=== PATIENT | female | born 1955 | race Caucasian/White ===

== ENCOUNTER → 2018-05-12 11:40 | Outpatient (CLI) | payer MEDICARE, OTHER, SELFPAY ==
[2018-05-12 11:53] LABS: Bacteria Urine None Seen; RBC Urine None Seen (0-5/HPF)
[2018-05-12 12:44] LABS: Hematocrit 38.3 % (36-46); Hemoglobin 12.9 g/dL (12.0-16.0); Mean Corpuscular HGB Conc 33.7 % (30-36); Mean Corpuscular Hemoglobin 32.9 PG (26-34); Mean Corpuscular Volume 97.6 fL (80-100); Platelet Count 222 X10^3/uL (150-400); Red Blood Cell Count 3.93 X10^6/uL (4.0-5.2); Red Cell Distribution Width 12.9 % (11.6-14.8); White Blood Cell Count 4.4 X10^3/uL (4.5-11.0)
[2018-05-12 13:02] LABS: Blood Urea Nitrogen 12 mg/dL (7-17); Calcium 9.5 mg/dL (8.4-10.2); Carbon Dioxide 27 mmol/L (22-32); Chloride 101 mmol/L (98-107); Estimated Glomerular Filt Rate > 60.0 mL/min (>60); Glucose 88 mg/dL (80-110); HEMOLYSIS < 15 (0-50); Potassium 3.5 mmol/L (3.4-5.1); Sodium 143 mmol/L (137-145)
[2018-05-12 13:12] LABS: Appearance Urine UA CLEAR; Bilirubin Urine UA NEGATIVE (NEGATIVE); Color Urine UA YELLOW; Glucose Urine UA NEGATIVE (Normal); Ketones Urine UA NEGATIVE (NEGATIVE); Leukocyte Esterase Urine UA NEGATIVE (NEGATIVE); Nitrite Urine UA NEGATIVE (Negative); Occult Blood Urine UA NEGATIVE (Negative); Protein Urine UA NEGATIVE (Negative); Urobilinogen Urine UA 0.2 E.U./dL (0.2)
[2018-05-12 13:25] LABS: Squamous Epithelial Cell Urine 0-1 /HPF; WBC Urine 0-1/HPF (0-5/HPF)
== END ==
PROVIDERS: Visit Provider Orthopaedic Surgery Orthopaedic Surgery of the Spine
DX: N39.0 Urinary tract infection, site not specified (principal); Z01.818 Encounter for other preprocedural examination
CPT/HCPCS: 36415; 80048; 81001; 85027; 87086

== ENCOUNTER 2018-05-16 06:39 | Inpatient (IN) | payer MEDICARE, OTHER, SELFPAY ==
[2018-05-12 10:27] VITALS: BMI 23.6
[2018-05-16] VITALS (20 sets, daily range): BP systolic 91–135; BP diastolic 63–88; PULSE 58–93; RESP 7–21; TEMP 35.9–36.8; O2SAT 88–100; BMI 23.6
--- NOTE | 2018-05-16 | DI.RAD.S_ITS ---
PROCEDURE: XR LUMBAR SPINE 2-3V INDICATIONS: L4-5, L5-1 TLIF TECHNIQUE: 2 intraoperative fluoroscopic views of the lumbar spine were acquired. COMPARISON: None. FINDINGS: Intraoperative fluoroscopic images of lumbar spine shows transpedicular fusion at L4-S1 levels with intervertebral spacer placement at L4-5 and L5-S1 levels. IMPRESSION: Fluoroscopy guidance was provided intraoperatively for transpedicular fusion at L4-S1 levels. Dictated by: Dat Benavidez M.D. on 05/16/2018 at 12:21 Approved by: Dat Benavidez M.D. on 05/16/2018 at 12:21
[2018-05-16] MEDS: LACTATED RINGERS 1,000 ML 42 ML IV ×3 (07:40→11:11)
--- NOTE | 2018-05-16 08:00 | PM.PREOP ---
Pre-operative Note Interval Note Pre-op Check: Yes History & Physical Reviewed by Physician, Yes Exam Performed and Yes History & Physical exam performed today by Physician Changes: No
[2018-05-16] MEDS: CEFAZOLIN 2 GM/100 ML FROZ.PIGGY IV ×3 (08:05→23:47)
--- NOTE | 2018-05-16 08:41 | SUR.OPER ---
Prone on spine table, head in foam head support, padded chest and pelvic supports, gel pad at knees, lower legs supported by pillows; nipples, genitalia and toes free of pressure, arms secured on foam padded arm boards at <90 degrees abduction. Tape over blanket at thigh secured to table.
[2018-05-16] MEDS: BUPIVACAINE LIPOSOME 266 MG/20 ML VIAL INJ (08:56)
[2018-05-16] MEDS: BUPIVACAINE 0.25% W/ EPI VIAL 30 ML INJ (08:56)
[2018-05-16] MEDS: ACETAMINOPHEN IV 1,000 MG/100 ML VIAL 400 MG IV (10:43)
--- NOTE | 2018-05-16 11:41 | PM.OP.1 ---
Operative Date/Time/Diagnoses Date of procedure: 05/16/18 Time of procedure: 08:23 Pre-op diagnosis: 1. L4-5 spondylolisthesis 2. Lumbar scoliosis 3. Lumbar spinal stenosis L4-5, L5-S1+ Post-op diagnosis: same Procedure & Clinicians Procedure: 1. L4-5, L5-S1 Postero-lateral and posterior interbody fusion 2. L4-5, L5-S1 interbody cage placement. 3. L4-5, L5-S1 decompressive laminectomy with bilateral facetecomies 4. L4-5, L5-S1 Posterior segmental instrumentation 5. [place] of bone marrow from iliac crest 6. Utilization of microsurgical technique and operating microscope Same procedure as scheduled: Yes Indications: Patient has been having chronic back pain and worsening lumbar radiculopathy. Patient failed multiple conservative management with worsening pain weakness and numbness in her lower extremity. Patient has been having difficulty performing activity of daily living. After discussing risks benefits of treatment options, patient elected proceed with surgery. Surgeon: Jazmin Molina Fiberglass Insulation Installer: Kori Quiñonez Click Yes if Unassisted: No Anesthesia Type: General Operative Notes Closure Type: primary Specimen(s): none sent Implants & Drains: Globus revolve screws, Rise cages Applied: catheter Estimated Blood Loss (mL): 400 Blood products transfused: none Procedure in detail: Patient was seen in the preoperative area. Risks and benefits of the surgery was discussed with the patient. Informed consent was obtained from the patient and placed in the chart. Surgical site was marked. Patient was taken to the operative room. General anesthesia was administered. Prophylactic antibiotic was given to the patient less than 30 min before the incision was made. Patient was placed into a prone position on the Bert table. Patient's back was then prepped and draped in the sterile fashion. Time-out was performed at this time. Using AP and lateral C-arm imaging the interval between L4-S1 was identified and marked on patient's back. A 2 inch incision 2 in from midline was made on the left side first. The fascia was incised in line with skin incision. Globus MARS retractors was placed inside the incision and docked onto the L4 and L5 lamina. Using microsurgical technique and operating microscope, a L4 and L5 laminectomy and L4-5 L5-S1 facetectomy was performed using a Kerrison rongeur. The disc space at L4-5, L5-S1 was identified. And a total diskectomy was performed at L4-5, L5-S1 level. The endplates were decorticated using a rasp and shaver. The total diskectomy and decortication was performed at L4-5, L5-S1 level in order to to accomplish a L4-5, L5-S1 fusion. The local bone from the laminectomy and facetectomy was saved for local bone grafting. After the total diskectomy and decortication was completed, Globus viacell bone graft material was combined with local bone that was harvested earlier. At this time, a separate skin is incision was made over the iliac crest. A Jamshidi needle was inserted into the iliac crest through a separate skin incision. 5 cc of bone marrow aspiration was obtained through the separate skin incision using a Jamshidi needle from the iliac crest. The bone marrow aspiration was combined with local bone and the via cell bone grafting material. The bone grafting material was placed into the L4-5, L5-S1 interbody space along with two cages, one expandable cage at each level. The cages were expanded to their maximum height using the torque limiting screwdriver. At this time a mirror image incision was made on the right side. The fascia was incised in line with the skin incision. Globus MARS retractor was inserted and docked onto the L4-5, L5-S1 posterolateral gutter. Using the power drill, posterior-lateral decortication was performed at L4-5, L5-S1 level until bleeding cortical bone was identified. The remaining bone grafting material was placed into the L4-5 L5-S1 posterior lateral gutter he order to accomplish posterolateral fusion at the L4-5 L5-S1 levels. Using the double C-arm technique, pedicle screws were placed into the L4, L5, S1 pedicles bilaterally. This was done by placing the Jamshidi needle into the pedicles, then placing the guidewires over the Jamshidi needle, and finally placing the cannulated screws over the guidewires bilaterally. After the pedicle screws were placed, 2 titanium rods was locked into the heads of the pedicle screws using locking caps and torque limiting screwdriver. Total 6 pedicles screws were placed. After all the hardware was placed, and confirmed with AP and lateral C-arm imaging, the wound was then irrigated with sterile normal saline and packed with Ray-Augusto gauze for 3 min to accomplish hemostasis. After the gauze was removed the deep fascia was closed with #1 Vicryl suture. The subcutaneous layer was closed with 2-0 Vicryl. The skin was closed with skin carley. Patient tolerated the procedure well. There were no complications. Complications: none Condition: stable Disposition: PACU Plan for aftercare: Admit to inpatient hospital
--- NOTE | 2018-05-16 12:09 | SUR.PHASEI ---
Tr to 1+ pitting edema to ble
--- NOTE | 2018-05-16 12:10 | SUR.PHASEI ---
Report given to
--- NOTE | 2018-05-16 12:12 | SUR.PHASEI ---
reprot recieved. care assumed.
--- NOTE | 2018-05-16 12:23 | SUR.PHASEI ---
care transferred to Yemi KITCHEN report given.
[2018-05-16] MEDS: fentaNYL 100 MCG/2 ML INJ 50 MCG IV ×2 (12:45→12:51)
[2018-05-16] MEDS: SODIUM CHLORIDE 0.9% 1,000 ML 100 ML IV ×2 (13:34→23:47)
[2018-05-16] MEDS: OXYCODONE IR 5 MG TABLET 10 MG PO ×3 (14:03→18:43)
--- NOTE | 2018-05-16 15:37 | PT.IPTN ---
Current Diagnoses Other idiopathic scoliosis, thoracolumbar region (05/16/18) Spondylolisthesis, lumbar region (05/16/18) Spinal stenosis, lumbar region with neurogenic claudication (05/16/18) Surgery Performed Operation Date: 05/16/18 07:45 Actual Procedures p L4-5,L5-S1 TLIF w/Posterior Instru. - Jazmin Molina MD Physical Therapy Treatment Note M3 PT-IP Subjective Start: 05/16/18 15:36 Freq: NEEDED Status: Active Protocol: Document 05/16/18 15:00 RS (Rec: 05/16/18 15:37 RS [id number]) Subjective Physical Therapy Visit Type Type Administrative Note Notes Pt with 8/10 pain, not yet ready to participate in PT.
[2018-05-16] MEDS: BACLOFEN 10 MG TABLET PO ×2 (16:44→21:07)
[2018-05-16] MEDS: ACETAMINOPHEN 325 MG TABLET 650 MG PO (18:42)
[2018-05-16] MEDS: hydrOXYzine pamoate 25 MG CAPSULE PO (18:43)
[2018-05-16] MEDS: DOCUSATE 100 MG CAPSULE PO (21:07)
[2018-05-16] MEDS: SENNOSIDES 8.6 MG TABLET 17.2 MG PO (21:07)
[2018-05-17] VITALS (7 sets, daily range): BP systolic 95–116; BP diastolic 64–75; PULSE 75–90; RESP 16–18; TEMP 36.6–37.1; O2SAT 91–99
--- NOTE | 2018-05-17 00:19 | PC.NURSE ---
Addendum entered by Michelle Molina R.N. 05/17/18 05:57: Medicated for 4/10 back pain but declined offer of ice Original Note: Addendum entered by Michelle Molina R.N. 05/17/18 02:01: Complains of throbbing pain in back with 6/10 severity; medicated with Oxycodone + Vistaril (also says the spasms are back) and ice applied to back. Original Note: Patient is alert and oriented. Breath sounds CTA with RA sat of 96%. HRR. Denies nausea. BT present and is passing flatus. Indwelling catheter is patent. Able to assist with turning but prefers to be on back so Tameka tilt function being used to change position q2h. Dressing to back is CDI. Denies any pain at present time. CMS is intact. Refuses SCD's as states they cause her to have spasms. Fall risk score is moderate and bed alarm is activated.
[2018-05-17] MEDS: hydrOXYzine pamoate 25 MG CAPSULE PO ×2 (02:00→12:28)
[2018-05-17] MEDS: OXYCODONE IR 5 MG TABLET 10 MG PO ×7 (02:00→23:36)
[2018-05-17] MEDS: LEVOTHYROXINE 100 MCG TABLET 200 MCG PO (05:31)
[2018-05-17 05:35] LABS: Hematocrit 28.4 % (36-46); Hemoglobin 9.6 g/dL (12.0-16.0)
[2018-05-17] MEDS: ACETAMINOPHEN 325 MG TABLET 650 MG PO ×4 (08:11→23:26)
[2018-05-17] MEDS: DOCUSATE 100 MG CAPSULE PO ×2 (08:12→20:32)
[2018-05-17] MEDS: FUROSEMIDE 40 MG TABLET 80 MG PO (08:12)
[2018-05-17] MEDS: BACLOFEN 10 MG TABLET PO ×3 (08:12→20:32)
[2018-05-17] MEDS: POTASSIUM CHLORIDE 10 MEQ TAB 20 MEQ PO (08:12)
--- NOTE | 2018-05-17 08:43 | CM.DANOTE ---
DCP: Case received, EMR reviewed and met with patient. Introduced self and role. DCP template completed with information currently available. Patient is a 63 year old female who admitted yesterday morning to the care of the hospitalist team. PCP: Dr. Coulter. Payer: confirmed:Medicare/[employer]. Patient came to hospital for procedure, Posterior fusion of L4-5, L5-S1. Patient has had chronic history of back pain. Met with patient in room. Alert and oriented, pleasant. at bedside as well. Patient lives in [place] with spouse, who is supportive. Has a walker and cane available as well. Has been independent at home. Patient will be working with physical therapy today. P: DCP to continue to follow. Patient should be able to go home when stable. Maine Olsen RN/Turning And Beading Machine Operator
--- NOTE | 2018-05-17 09:09 | PM.PNPO.1 ---
Subjective Date Patient Seen: 05/17/18 Time Patient Seen: 09:09 Interval history: POD #1 status post lumbar fusion with Dr. Molina. Patient is having pain this morning. Patient has Gaspar in place. Patient has not worked with physical therapy yet. Exam Vital Signs (past 8 hours): - 05/17/18 04:30 05/17/18 07:35 Temperature 98.6 F 97.8 F Pulse Rate 75 77 Respiratory Rate 17 16 Blood Pressure 112/75 116/71 Pulse Oximetry 99 98 Oxygen Delivery Method Room Air Oxygen Flow Rate 0 Narrative Exam Narrative: Patient lying in bed in no acute distress. She is alert and oriented x3. Calves are soft, compressible, nontender bilaterally. Sensation intact to light touch throughout bilateral lower extremities. Patient has Gaspar in place. Objective Labs Result Diagrams: 05/17/18 04:58 Labs: Laboratory Results - last 24 hr 05/17/18 04:58 Hgb 9.6 L Hct 28.4 L Assessment & Plan Post-op (1) S/P lumbar fusion: Current Visit: Yes Status: Acute Postoperative Procedures Operation Date: 05/16/18 07:45 Actual Procedures Side Surgeon p L4-5,L5-S1 TLIF w/Posterior Instru. Jazmin Molina MD Patient will mobilize with physical therapy. Our office will start the process of ordering a bone growth stimulator, patient not requiring brace at this time due to her scoliosis. DC Gaspar tomorrow. Continue current pain management. Depending on how patient is mobilizing she might need a SNF verses home health services. Quality VTE Deep Vein Thrombosis/Pulmonary Embolism Present on Admission: No
--- NOTE | 2018-05-17 11:23 | PT.IIE ---
Current Diagnoses Other idiopathic scoliosis, thoracolumbar region (05/16/18) Spondylolisthesis, lumbar region (05/16/18) Spinal stenosis, lumbar region with neurogenic claudication (05/16/18) Arthrodesis status (05/16/18) Surgery Performed Operation Date: 05/16/18 07:45 Actual Procedures p L4-5,L5-S1 TLIF w/Posterior Instru. - Jazmin Mcneill MD Surgical History (Last Updated 04/11/18 @ 10:33 by Lisa Coulter RN) History of bilateral tubal ligation (Acute) History of lithotripsy (Acute) History of tonsillectomy (Acute) S/P epidural steroid injection (Acute) Medical History (Last Updated 05/12/18 @ 10:43 by Jonna Stevenson RN) Bradycardia (Acute) Chest pain (Acute) Hypothyroid (Acute) Leg swelling (Acute) Other idiopathic scoliosis, thoracolumbar region (Acute) Postmenopausal (Acute) Pulmonary HTN (Acute) RBBB (Acute) Renal cyst (Acute) Spinal stenosis, lumbar region with neurogenic claudication (Acute) Spondylolisthesis, lumbar region (Acute) Physical Therapy Inpatient Evaluation/Re-Eval M1 PT/OT-IP Prior Functional Status Start: 05/16/18 15:36 Freq: NEEDED Status: Active Protocol: Document 05/17/18 14:05 JLUIS (Rec: 05/17/18 14:42 JLUIS [id number]) Medical Review Prior Functional Status Medical History Reviewed Yes Diet/Fluid Consistency Regular Communication WNL Mobility and Gait stated that she is modified independent with all mobilities and ambulation without AD but occasionally uses a FWW. stated that she is house bound for ~ 4 months due to back pain and unable to ambulate outdoors/long distances Activities of Daily Living and IADL's Pt's was assisting with socks (rarely wears them) and shoes PRN. He does all button decorating machine operator and driving at present due to pt's pain level. Prior Functional Level (Other details) can provide 24 hr assist at discharge. Social History Household Members spouse Living Arrangements House Number of Floors (Floors) One Floor Number of Stairs To Enter/Railing? no steps to enter Home Environment Standard Height Toilet Walk in Shower Home Equipment Front Wheel Walker Raised Toilet Seat w/Armrests Shower Seat with Backrest Hand Held Shower Employment Status Retired Additional Social History Comment Pt states she plans to use lawn chair with non skid rubber feet in shower. M2 PT-IP Current Condition Start: 05/16/18 15:36 Freq: NEEDED Status: Active Protocol: Document 05/17/18 11:23 AB (Rec: 05/17/18 13:17 AB [id number]) Physical Therapy Current Condition Current Condition Evaluation Date 05/17/18 Treatment Diagnosis s/p L4-5, L5S1 TLIF/lami; difficulty in walking Onset Date 05/16/18 Precautions Lumbar Precautions Log Roll No Twisting Limit Bending Lifting Restriction of 10 lbs Gait Belt above Incisional Area Other Precautions Pt PA's note: pt will need a back brace but no MD order found. Called PA and stated that she has to clarify with Dr. mcneill on what type of brace is needed but pt is cleared to get up with PT at this time even without the brace. M3 PT-IP Subjective Start: 05/16/18 15:36 Freq: NEEDED Status: Active Protocol: Document 05/17/18 15:15 AB (Rec: 05/17/18 16:07 AB [email or web address]) Subjective Physical Therapy Visit Type Type Treatment Note Visit Start Time 15:15 Visit Stop Time 15:50 Total Visit Minutes 35 Number of BANKING SUPERVISOR Visits 0 Physical Therapy Visit Comments Patient Comments pt agreeable to get up Therapy Pain Assessment Pain When Pain Assessed At Rest Pain Present Pain Present Pain Reported Location Head Intensity 6 Scale Used Numeric (1 - 10) Pain Management Techniques Modification of Treatment Re-positioning Timing of Activity with Medications M4 PT-IP Mobility and Gait Start: 05/16/18 15:36 Freq: NEEDED Status: Active Protocol: Document 05/17/18 15:15 AB (Rec: 05/17/18 16:07 AB [id number]) PT-Bed Mobility Assessment Rolling Type of Rolling Log Rolling Level of Assist Maximal Assistance 1 Person Assistance Supine to Sit Supine to Sit Maximum Assistance 1 Person Assistance Bedrails Sit to Supine Sit to Supine Maximum Assistance 1 Person Assistance PT-Transfer Assessment Sit to and From Stand Sit to and from Stand Moderate Assistance Maximum Assistance 1 Person Assistance Comments Mobility Comments BP monitored. supine: 105/70. pt sitting on EOB without c/ o dizziness. BP: 104/69. pt completed sit to stand x 2 attempts requiring mod to max A and cues. pt c/o dizziness. instructed to sit down but stated that she wants to see how it goes. pt tolerated ~ 15 sec of standing and stated This will not work, I am dizzy. pt assisted to sit down max A and cues. pt was able to scoot towards HOB mod to max A and max cues and completed sit to supine max A log roll bed mobility. pt required max A to elevated BLE up in bed. BP checked: 96/63 . pt positioned in bed max A and cues. checked BP after ~ 5 min: 95/66. call light and table placed within reach. left pt with spouse in room. informed nurse regarding BP Gait Assessment Comments Gait Comments unable at this time M5 PT-IP Objective Assessments Start: 05/16/18 15:36 Freq: NEEDED Status: Active Protocol: Document 05/17/18 11:23 AB (Rec: 05/17/18 13:17 AB [id number]) Orientation Orientation/Cognition Level of Alertness Alert Orientation Name Age Birthday Month Date Year Day of Week Place Situation Gross Range of Motion Lower Extremity ROM Assessment Within Functional Limits Strength Lower Extremity Strength Assessment Bilaterally Impaired Comments Strength Comments BLE 3+/5 Other Assessments Other Other Assessments pt with dextroscoliosis with rib hump M6 PT-IP Treatment Start: 05/16/18 15:36 Freq: NEEDED Status: Active Protocol: Document 05/17/18 15:15 AB (Rec: 05/17/18 16:07 AB [id number]) Physical Therapy Treatment Education Education Provided Precautions Safety M7 PT-IP Assessment and Plan Start: 05/16/18 15:36 Freq: NEEDED Status: Active Protocol: Document 05/17/18 15:15 AB (Rec: 05/17/18 16:07 AB [email or web address]) PT Summary Assessment and Plan Potential Rehabilitation Potential Fair Summary Impairments Pain ROM Strength Balance Coordination Sensation Bed Mobility Transfers Gait Activity Tolerance Progress Towards Goals Slow Progress due to Medical Issues Slow Progress due to Activity Tolerance Assessment Summary pt continues to require mod to max A with mobility. spouse was present during tx session and agreed to do caregiver training tomorrow in the afternoon if pt will be able to tolerate more activity. informed pt and spouse regarding SNF rehab and pt stated that she does not need it. will continue to assess. Goals Bed Mobility Goal Standby Assistance Contact Guard Assistance Transfer Goal Independent Standby Assistance Front Wheeled Walker Gait Goal Standby Assistance Front Wheel Walker Gait Distance 100 Days to Meet Goals 5 Frequency of Treatment Frequency Of Treatment Twice a Day Treatment Plan Physical Therapy Treatment Plan Bed Mobility Training Transfer Training Gait Training Therapeutic Exercise Balance Retraining Post Op Education Discharge Planning Hot or Cold Pack Neuromuscular Re-ed Coordination Retraining Manual Therapy Other Recommendations and Next Treatment ambulation Focus Recommendations To Nursing Amount of Assist Needed 2 Person Assist Discharge Recommendations PT Discharge Recommendations Home with 24/7 Assist Home Health SNF Rehab Other Discharge Recommendations SNF vs home with 24/7 assist and homehealth PT
--- NOTE | 2018-05-17 11:23 | PT.IIE ---
Current Diagnoses Other idiopathic scoliosis, thoracolumbar region (05/16/18) Spondylolisthesis, lumbar region (05/16/18) Spinal stenosis, lumbar region with neurogenic claudication (05/16/18) Arthrodesis status (05/16/18) Surgery Performed Operation Date: 05/16/18 07:45 Actual Procedures p L4-5,L5-S1 TLIF w/Posterior Instru. - Jazmin Mcneill MD Surgical History (Last Updated 04/11/18 @ 10:33 by Lsia Coulter RN) History of bilateral tubal ligation (Acute) History of lithotripsy (Acute) History of tonsillectomy (Acute) S/P epidural steroid injection (Acute) Medical History (Last Updated 05/12/18 @ 10:43 by Jonna Stevenson RN) Bradycardia (Acute) Chest pain (Acute) Hypothyroid (Acute) Leg swelling (Acute) Other idiopathic scoliosis, thoracolumbar region (Acute) Postmenopausal (Acute) Pulmonary HTN (Acute) RBBB (Acute) Renal cyst (Acute) Spinal stenosis, lumbar region with neurogenic claudication (Acute) Spondylolisthesis, lumbar region (Acute) Physical Therapy Inpatient Evaluation/Re-Eval M1 PT/OT-IP Prior Functional Status Start: 05/16/18 15:36 Freq: NEEDED Status: Active Protocol: Document 05/17/18 11:23 AB (Rec: 05/17/18 13:17 AB [id number]) Medical Review Prior Functional Status Medical History Reviewed Yes Communication able to make needs known Mobility and Gait stated that she is modified independent with all mobilities and ambulation without AD but occasionally uses a FWW. stated that she is house bound for ~ 4 months due to back pain and unable to ambulate outdoors/long distances Social History Household Members spouse Living Arrangements House Number of Floors (Floors) One Floor Number of Stairs To Enter/Railing? no steps to enter Home Environment Standard Height Toilet Walk in Shower Home Equipment Front Wheel Walker Raised Toilet Seat w/Armrests Hand Held Shower Employment Status Retired M2 PT-IP Current Condition Start: 05/16/18 15:36 Freq: NEEDED Status: Active Protocol: Document 05/17/18 11:23 AB (Rec: 05/17/18 13:17 AB [id number]) Physical Therapy Current Condition Current Condition Evaluation Date 05/17/18 Treatment Diagnosis s/p L4-5, L5S1 TLIF/lami; difficulty in walking Onset Date 05/16/18 Precautions Lumbar Precautions Log Roll No Twisting Limit Bending Lifting Restriction of 10 lbs Gait Belt above Incisional Area Other Precautions Pt PA's note: pt will need a back brace but no MD order found. Called PA and stated that she has to clarify with Dr. mcneill on what type of brace is needed but pt is cleared to get up with PT at this time even without the brace. M3 PT-IP Subjective Start: 05/16/18 15:36 Freq: NEEDED Status: Active Protocol: Document 05/17/18 11:23 AB (Rec: 05/17/18 13:17 AB [id number]) Subjective Physical Therapy Visit Type Type Initial Evaluation Visit Start Time 11:23 Visit Stop Time 12:06 Total Visit Minutes 43 Number of AUTO SALVAGE WORKER Visits 0 Physical Therapy Visit Comments Patient Comments pt agreeable to get up Therapy Pain Assessment Pain When Pain Assessed At Rest Pain Present Pain Present Pain Reported Location Lower Back Intensity 6 Scale Used Numeric (1 - 10) Pain Management Techniques Re-positioning Timing of Activity with Medications M4 PT-IP Mobility and Gait Start: 05/16/18 15:36 Freq: NEEDED Status: Active Protocol: Document 05/17/18 11:23 AB (Rec: 05/17/18 13:17 AB [id number]) PT-Bed Mobility Assessment Rolling Type of Rolling Log Rolling Level of Assist Moderate Assistance Supine to Sit Supine to Sit Maximum Assistance 1 Person Assistance Sit to Supine Sit to Supine Maximum Assistance 1 Person Assistance Scooting Scooting to Edge of Bed Maximum Assistance PT-Transfer Assessment Sit to and From Stand Sit to and from Stand Moderate Assistance 1 Person Assistance Equipment Transfer Assistive Device Gait Belt Front Wheeled Walker Orthotic/Prosthetic Devices or Brace: No Comments Mobility Comments Bp in supine at start of Pt session: 108/73. pt sat on EOB without any complaints. pt agreed to get up and required mod A with sit to stand. pt was able to take ~ 2 steps max A using FWW and then c/o dizziness. instructed to sit down requiring max A for controlled descent. pt then became unresponsive and required max A to put back to bed. asked nurse for assistance. upon laying down in bed, pt was able to respond to questions. nurse came in to check on pt . BP checked: 94/57. assisted pt with bed positioning requiring max A x 2 and max cues. BP checked again: 108/66. Left pt in bed with call light and table placed within reach. Gait Assessment Comments Gait Comments Able to take 2 steps max A using FWW but unable to go farther due to c/o dizziness with decrease in BP. PT-Balance Assessment Sitting Balance and Reactions Static Sitting Balance Ability Good Dynamic Sitting Balance Ability Good Standing Balance and Reactions Static Standing Balance Ability Fair Dynamic Standing Balance Ability Poor M5 PT-IP Objective Assessments Start: 05/16/18 15:36 Freq: NEEDED Status: Active Protocol: Document 05/17/18 11:23 AB (Rec: 05/17/18 13:17 AB [id number]) Orientation Orientation/Cognition Level of Alertness Alert Orientation Name Age Birthday Month Date Year Day of Week Place Situation Gross Range of Motion Lower Extremity ROM Assessment Within Functional Limits Strength Lower Extremity Strength Assessment Bilaterally Impaired Comments Strength Comments BLE 3+/5 M6 PT-IP Treatment Start: 05/16/18 15:36 Freq: NEEDED Status: Active Protocol: Document 05/17/18 11:23 AB (Rec: 05/17/18 13:17 AB [id number]) Physical Therapy Treatment Exercises Exercises Quad Sets Heel Slides Education Education Provided Precautions Weight Bearing Status Post-Op Packet Safety M7 PT-IP Assessment and Plan Start: 05/16/18 15:36 Freq: NEEDED Status: Active Protocol: Document 05/17/18 11:23 AB (Rec: 05/17/18 13:17 AB [id number]) PT Summary Assessment and Plan Potential Rehabilitation Potential Good Status of Condition at Evaluation Evolving Summary Impairments Pain ROM Strength Balance Coordination Sensation Tone Cognition Bed Mobility Transfers Gait Activity Tolerance Assessment Summary pt uanble to toelrate much activity this morning with decrease in BP during standing . D/C plan depending on progress and level of assistance needed but at this time may require SNF rehab. Goals Bed Mobility Goal Standby Assistance Contact Guard Assistance Transfer Goal Independent Standby Assistance Front Wheeled Walker Gait Goal Standby Assistance Front Wheel Walker Gait Distance 100 Days to Meet Goals 5 Frequency of Treatment Frequency Of Treatment Twice a Day Treatment Plan Physical Therapy Treatment Plan Bed Mobility Training Transfer Training Gait Training Therapeutic Exercise Balance Retraining Post Op Education Discharge Planning Hot or Cold Pack Neuromuscular Re-ed Coordination Retraining Manual Therapy Other Recommendations and Next Treatment ambulation Focus Recommendations To Nursing Amount of Assist Needed 2 Person Assist Discharge Recommendations PT Discharge Recommendations Home with 24/7 Assist Home Health SNF Rehab Other Discharge Recommendations SNF vs home with 24/7 assist and homehealth PT
[2018-05-17] MEDS: SODIUM CHLORIDE 0.9% 1,000 ML 100 ML IV ×2 (12:28→23:50)
[2018-05-17] MEDS: SODIUM CHLORIDE 0.9% 1,000 ML 1000 ML IV (12:28)
--- NOTE | 2018-05-17 14:05 | OT.IP.EVAL ---
Current Diagnoses Other idiopathic scoliosis, thoracolumbar region (05/16/18) Spondylolisthesis, lumbar region (05/16/18) Spinal stenosis, lumbar region with neurogenic claudication (05/16/18) Arthrodesis status (05/16/18) Surgery Performed Operation Date: 05/16/18 07:45 Actual Procedures p L4-5,L5-S1 TLIF w/Posterior Instru. - Jazmin Molina MD Past Medical History (Last Updated 05/12/18 @ 10:43 by Jonna Stevenson RN) Bradycardia (Acute) Chest pain (Acute) Hypothyroid (Acute) Leg swelling (Acute) Other idiopathic scoliosis, thoracolumbar region (Acute) Postmenopausal (Acute) Pulmonary HTN (Acute) RBBB (Acute) Renal cyst (Acute) Spinal stenosis, lumbar region with neurogenic claudication (Acute) Spondylolisthesis, lumbar region (Acute) Surgical History (Last Updated 04/11/18 @ 10:33 by Lisa Coulter RN) History of bilateral tubal ligation (Acute) History of lithotripsy (Acute) History of tonsillectomy (Acute) S/P epidural steroid injection (Acute) Occupational Therapy Inpatient Evaluation/Re-Eval M1 PT/OT-IP Prior Functional Status Start: 05/16/18 15:36 Freq: NEEDED Status: Active Protocol: Document 05/17/18 14:05 JLUIS (Rec: 05/17/18 14:42 PJManuel [id number]) Medical Review Prior Functional Status Medical History Reviewed Yes Diet/Fluid Consistency Regular Communication WNL Mobility and Gait stated that she is modified independent with all mobilities and ambulation without AD but occasionally uses a FWW. stated that she is house bound for ~ 4 months due to back pain and unable to ambulate outdoors/long distances Activities of Daily Living and IADL's Pt's was assisting with socks (rarely wears them) and shoes PRN. He does all toll transmission worker and driving at present due to pt's pain level. Prior Functional Level (Other details) can provide 24 hr assist at discharge. Social History Household Members spouse Living Arrangements House Number of Floors (Floors) One Floor Number of Stairs To Enter/Railing? no steps to enter Home Environment Standard Height Toilet Walk in Shower Home Equipment Front Wheel Walker Raised Toilet Seat w/Armrests Shower Seat with Backrest Hand Held Shower Employment Status Retired Additional Social History Comment Pt states she plans to use lawn chair with non skid rubber feet in shower. M2 OT-IP Current Condition Start: 05/17/18 14:23 Freq: Status: Active Protocol: Document 05/17/18 14:05 PJM (Rec: 05/17/18 14:42 PJ [id number]) Occupational Therapy Current Condition Current Condition Evaluation Date 05/17/18 Treatment Diagnosis decreased self care/functional mobility s/p L4-S1 TLIF Post Operative Precautions Lumbar Precautions Log Roll No Twisting Limit Bending Lifting Restriction of 10 lbs Gait Belt above Incisional Area Other Precautions Pt PA's note: pt will need a back brace but no MD order found. Called PA and stated that she has to clarify with Dr. Molina on what type of brace is needed but pt is cleared to get up with PT at this time even without the brace. M3 OT- IP Subjective and Pain Start: 05/17/18 14:23 Freq: Status: Active Protocol: Document 05/17/18 14:05 PJM (Rec: 05/17/18 14:42 PJ [id number]) OT- Subjective Occupational Therapy Visit Type Type Initial Evaluation Visit Start Time 12:40 Visit Stop Time 14:05 Notes here for education this session. Note pt was orthostatic with P.T. this AM with limited mobility today. Occupational Therapy Visit Comments Patient Comments I don't want to use any of that handicapped equipment. My will just help me with everything I need. Patient/Caregiver Goals to be able to travel in their RV OT Pain Assessment Pain When Pain Assessed At Rest Pain Present Pain Present Pain Reported Location Head Intensity 6 Scale Used Numeric (1 - 10) Description Aching Acute Pain Behaviors Facial Grimacing Guarding Management Techniques Distraction Re-positioning Timing of Activity with Medications M4 OT- IP ADL's Start: 05/17/18 14:23 Freq: Status: Active Protocol: Document 05/17/18 14:05 PJM (Rec: 05/17/18 14:42 PJ [id number]) OT [id number] General Evaluation Diet Level for Self-Feeding general Self-Feeding Ability Independent OT ADL-Grooming General Evaluation Grooming Ability Standby Assistance Areas Needing Assistance Retrieving/Set-up of Grooming Items Face Washing Comments OT Grooming Comments after set up in bed OT ADL-Oral Care General Eval Oral Care Ability Standby Assistance Areas of Assistance Retrieving/Set-Up of Items Devices Oral Care Devices Toothbrush Comments Oral Care Comments after set up in bed OT ADL-Dressing General Eval Upper Body Dressing Ability Minimal Assistance Lower Body Dressing Ability Maximum Assistance Comments OT Dressing Comments Pt min assist with gown in bed . Pt educated re: lower body dressing equipment (production cook, sock aid, long shoe horn). Pt declines all equipt stating I don't like that handicapped crap. and prefers to have assist with any lower body dressing needs. willing/able to assist PRN. OT ADL-Toileting General Evaluation Toileting Ability Total Assistance Areas Needing Assistance Empty Catheter or Colostomy Comments OT Toileting Comments to be assessed; pt has rosenbaum at present OT ADL-Bathing Comments OT Bathing Comments to be assessed as activity tolerance improves, will obtain long bath brush for pt M5 OT- IP IADL's Start: 05/17/18 14:23 Freq: Status: Active Protocol: Document 05/17/18 14:05 PJ (Rec: 05/17/18 14:42 [facility] [id number]) OT-Instrumental Activities of Daily Living Deficits IADL Deficits Identified Deficits Home Safety Awareness Awareness of Need for Assistance at Home Good Awareness Ability to Problem Solve Emergency Able to Problem Solve Situations Medication Management Medication Management No Deficits Identified Money Management Money Management No Deficits Identified Meal Preparation Meal Preparation Caregiver Provides Assist Meal Preparation Comments to assist until pt able Marketing Graphics Specialist Marketing Graphics Specialist Caregiver Provides Assist Marketing Graphics Specialist Comments to assist until pt able Driving Driving Caregiver Provides Assist Driving Comments to assist until pt able M6 OT- IP Functional Cognition Start: 05/17/18 14:23 Freq: Status: Active Protocol: Document 05/17/18 14:05 PJM (Rec: 05/17/18 14:42 [facility] [id number]) Cognitive Factors Limiting Selfcare Function Cognitive Ability Patient Orientation Name Age Birthday Month Date Year Day of Week Place Situation Attention Span Ability Capable of Focused Attention Capable of Sustained Attention Ability to Follow Commands Able to Follow One Step Commands Memory Description No Deficits Noted Cognitive Comments Cognitive Assessment Comments Pt recalls 3/3 lumbar spine precautions. OT- Vision and Hearing OT- Hearing Assessment OT- Hearing Assessment WFL OT- Vision Assessment Visual Acuity Glasses All The Time Vision Assessment Comments Pt denies any recent vision changes. M7 OT- IP Mobility and Balance Start: 05/17/18 14:23 Freq: Status: Active Protocol: Document 05/17/18 14:05 PJM (Rec: 05/17/18 14:42 PJM [id number]) OT-Transfer Assessment Comments Mobility Comments Pt declined out of bed this session due to fatigue and wants to save energy for P.T. OT- Gait Assessment Comments Gait Ability Comments see P.T. notes OT- Balance Assessment Comments Other Balance Tests/Deviations/Treatment see P.T. notes : M8 OT- IP Objective Assessments Start: 05/17/18 14:23 Freq: Status: Active Protocol: Document 05/17/18 14:05 PJM (Rec: 05/17/18 14:42 PJM [id number]) OT Gross Range of Motion Upper Extremity Range of Motion Assessment Within Functional Limits OT Strength Upper Extremity Strength Assessment Within Functional Limits Hand Drawer Liner Strength Hand Dominance Right OT- Coordination Assessment Comments Coordination Comments BUE WFL OT-Muscle Tone Assessment Muscle Tone WNL Yes OT Sensation Assessment Comments Summary Comments BUE WNL Edema Edema Absent M9 OT- IP Assessment and Plan Start: 05/17/18 14:23 Freq: Status: Active Protocol: Document 05/17/18 14:05 PJM (Rec: 05/17/18 14:42 PJM [id number]) OT Summary Assessment and Plan Potential Rehabilitation Potential Good Analytic Complexity at Evaluation Low Summary OT Impairments Pain Functional Mobility Grooming Dressing Toileting Bathing Toilet Transfers Shower Transfers Assessment Summary Low complexity OT assessment completed with emphasis on self care skills within lumbar spine precautions. Pt's functional mobility has been limited today by orthostasis and pain level. She currently has performance deficits in activity tolerance, standing grooming, bathing and toileting. Provided education to pt/ re: lumbar spine precautions during self care tasks, posture/body mechanics, optimal chair selection, lower body dressing with adaptive equipment and car transfers. Note pt declines all lower body dressing equipment and prefers to assist with this task at home. Plan 1-2 additional OT visits here to address goals below. Anticipate pt will d/c home with 24 hr assist from very supportive when medically stable and clears P. T. Goals Grooming Goal Independent Dressing Goal Independent Toileting Goal Independent Bathing Goal Minimal Assistance Toilet Transfer Goal Independent Raised Toilet Seat With Rails Shower Transfer Goal Minimal Assistance OT-Other Goals Grooming to be done standing at sink with goddd body mechanics. Dressing is for upper body only. to assist with lower body dressing PRN. Days to Meet Goals 2 Frequency of Treatment Frequency Of Treatment Once a Day Treatment Plan OT Treatment Plan ADL Training Functional Mobility Patient/Family Education Discharge Planning Discharge Recommendations OT Discharge Recommendations Home with 04/01 Assist Home Equipment Needs to obtain long bath brush for pt.
--- NOTE | 2018-05-17 15:15 | PT.IPTN ---
Current Diagnoses Other idiopathic scoliosis, thoracolumbar region (05/16/18) Spondylolisthesis, lumbar region (05/16/18) Spinal stenosis, lumbar region with neurogenic claudication (05/16/18) Arthrodesis status (05/16/18) Surgery Performed Operation Date: 05/16/18 07:45 Actual Procedures p L4-5,L5-S1 TLIF w/Posterior Instru. - Jazmin Mcneill MD Physical Therapy Treatment Note M2 PT-IP Current Condition Start: 05/16/18 15:36 Freq: NEEDED Status: Active Protocol: Document 05/17/18 11:23 AB (Rec: 05/17/18 13:17 AB [id number]) Physical Therapy Current Condition Current Condition Evaluation Date 05/17/18 Treatment Diagnosis s/p L4-5, L5S1 TLIF/lami; difficulty in walking Onset Date 05/16/18 Precautions Lumbar Precautions Log Roll No Twisting Limit Bending Lifting Restriction of 10 lbs Gait Belt above Incisional Area Other Precautions Pt PA's note: pt will need a back brace but no MD order found. Called PA and stated that she has to clarify with Dr. mcneill on what type of brace is needed but pt is cleared to get up with PT at this time even without the brace. M3 PT-IP Subjective Start: 05/16/18 15:36 Freq: NEEDED Status: Active Protocol: Document 05/17/18 15:15 AB (Rec: 05/17/18 16:07 AB [email or web address]) Subjective Physical Therapy Visit Type Type Treatment Note Visit Start Time 15:15 Visit Stop Time 15:50 Total Visit Minutes 35 Number of PASTE MIXING SUPERVISOR Visits 0 Physical Therapy Visit Comments Patient Comments pt agreeable to get up Therapy Pain Assessment Pain When Pain Assessed At Rest Pain Present Pain Present Pain Reported Location Head Intensity 6 Scale Used Numeric (1 - 10) Pain Management Techniques Modification of Treatment Re-positioning Timing of Activity with Medications M4 PT-IP Mobility and Gait Start: 05/16/18 15:36 Freq: NEEDED Status: Active Protocol: Document 05/17/18 15:15 AB (Rec: 05/17/18 16:07 AB [id number]) PT-Bed Mobility Assessment Rolling Type of Rolling Log Rolling Level of Assist Maximal Assistance 1 Person Assistance Supine to Sit Supine to Sit Maximum Assistance 1 Person Assistance Bedrails Sit to Supine Sit to Supine Maximum Assistance 1 Person Assistance PT-Transfer Assessment Sit to and From Stand Sit to and from Stand Moderate Assistance Maximum Assistance 1 Person Assistance Comments Mobility Comments BP monitored. supine: 105/70. pt sitting on EOB without c/ o dizziness. BP: 104/69. pt completed sit to stand x 2 attempts requiring mod to max A and cues. pt c/o dizziness. instructed to sit down but stated that she wants to see how it goes. pt tolerated ~ 15 sec of standing and stated This will not work, I am dizzy. pt assisted to sit down max A and cues. pt was able to scoot towards HOB mod to max A and max cues and completed sit to supine max A log roll bed mobility. pt required max A to elevated BLE up in bed. BP checked: 96/63 . pt positioned in bed max A and cues. checked BP after ~ 5 min: 95/66. call light and table placed within reach. left pt with spouse in room. informed nurse regarding BP Gait Assessment Comments Gait Comments unable at this time M5 PT-IP Objective Assessments Start: 05/16/18 15:36 Freq: NEEDED Status: Active Protocol: Document 05/17/18 11:23 AB (Rec: 05/17/18 13:17 AB [id number]) Orientation Orientation/Cognition Level of Alertness Alert Orientation Name Age Birthday Month Date Year Day of Week Place Situation Gross Range of Motion Lower Extremity ROM Assessment Within Functional Limits Strength Lower Extremity Strength Assessment Bilaterally Impaired Comments Strength Comments BLE 3+/5 M6 PT-IP Treatment Start: 05/16/18 15:36 Freq: NEEDED Status: Active Protocol: Document 05/17/18 15:15 AB (Rec: 05/17/18 16:07 AB [id number]) Physical Therapy Treatment Education Education Provided Precautions Safety M7 PT-IP Assessment and Plan Start: 05/16/18 15:36 Freq: NEEDED Status: Active Protocol: Document 05/17/18 15:15 AB (Rec: 05/17/18 16:07 AB [id number]) PT Summary Assessment and Plan Potential Rehabilitation Potential Fair Summary Impairments Pain ROM Strength Balance Coordination Sensation Bed Mobility Transfers Gait Activity Tolerance Progress Towards Goals Slow Progress due to Medical Issues Slow Progress due to Activity Tolerance Assessment Summary pt continues to require mod to max A with mobility. spouse was present during tx session and agreed to do caregiver training tomorrow in the afternoon if pt will be able to tolerate more activity. informed pt and spouse regarding SNF rehab and pt stated that she does not need it. will continue to assess. Goals Bed Mobility Goal Standby Assistance Contact Guard Assistance Transfer Goal Independent Standby Assistance Front Wheeled Walker Gait Goal Standby Assistance Front Wheel Walker Gait Distance 100 Days to Meet Goals 5 Frequency of Treatment Frequency Of Treatment Twice a Day Treatment Plan Physical Therapy Treatment Plan Bed Mobility Training Transfer Training Gait Training Therapeutic Exercise Balance Retraining Post Op Education Discharge Planning Hot or Cold Pack Neuromuscular Re-ed Coordination Retraining Manual Therapy Other Recommendations and Next Treatment ambulation Focus Recommendations To Nursing Amount of Assist Needed 2 Person Assist Discharge Recommendations PT Discharge Recommendations Home with 24/7 Assist Home Health SNF Rehab Other Discharge Recommendations SNF vs home with 24/7 assist and homehealth PT
[2018-05-17] MEDS: SENNOSIDES 8.6 MG TABLET 17.2 MG PO (20:32)
[2018-05-18] MEDS: ACETAMINOPHEN 325 MG TABLET 650 MG PO (04:03)
[2018-05-18] MEDS: OXYCODONE IR 5 MG TABLET 10 MG PO (04:09)
[2018-05-18 06:16] VITALS: BP 123/78; PULSE 95; RESP 16; TEMP 36.8; O2SAT 92
[2018-05-18] MEDS: LEVOTHYROXINE 100 MCG TABLET 200 MCG PO (07:08)
[2018-05-18 07:30] VITALS: BP 129/73; PULSE 87; RESP 14; TEMP 36.9; O2SAT 92
--- NOTE | 2018-05-18 07:30 | PC.NURSE ---
shift supervisor melting: pt requesting that her rosenbaum remain in place until she has worked with PT.
[2018-05-18] MEDS: DOCUSATE 100 MG CAPSULE PO ×2 (08:38→21:40)
[2018-05-18] MEDS: BACLOFEN 10 MG TABLET PO (08:38)
[2018-05-18] MEDS: POTASSIUM CHLORIDE 10 MEQ TAB 20 MEQ PO (08:38)
[2018-05-18] MEDS: FUROSEMIDE 40 MG TABLET 80 MG PO (08:38)
--- NOTE | 2018-05-18 09:05 | P.PN_ITS ---
Subjective Date Patient Seen: 05/18/18 Time Patient Seen: 09:03 Interval history: Hospital day 3, postop day 2 following L4-5, L5-S1 TLIF by Dr. Molina. Alert, oriented no acute distress resting in bed. Patient is complaining of headache. She has been taking Excedrin 12 tablets per day on a regular basis preoperatively. She has been getting oxycodone for pain which is making her feel ill. She would like to try something different. She had limited physical therapy yesterday as she was weak. Exam Vital Signs (past 8 hours): - 05/18/18 06:16 05/18/18 07:30 Temperature 98.3 F 98.5 F Pulse Rate 95 H 87 Respiratory Rate 16 14 Blood Pressure 123/78 129/73 Pulse Oximetry 92 92 Oxygen Delivery Method Room Air Oxygen Flow Rate 0 Narrative Exam Narrative: Back. Dressing is dry without drainage or inflammation. Legs. No calf pain or swelling. Pulses symmetrical. Good strength on foot dorsiflexion plantar flexion. Sensation symmetrical to touch to lower legs. Objective Labs Result Diagrams: 05/17/18 04:58 Assessment & Plan Post-op Postoperative Procedures Operation Date: 05/16/18 07:45 Actual Procedures Side Surgeon p L4-5,L5-S1 TLIF w/Posterior Instru. Jazmin Molina MD Plan: Will have patient try using [place]yer 5-10 mg for pain is centered by oxycodone. Will add KCl 10 mEq at dinnertime. Patient will work with physical therapy today. Anticipate discharge home tomorrow if she is stable. Quality VTE Deep Vein Thrombosis/Pulmonary Embolism Present on Admission: No
[2018-05-18] MEDS: HYDROCODONE/ACET 5/325 TABLET 2 TAB PO ×4 (09:08→21:40)
--- NOTE | 2018-05-18 10:42 | OT.IP.TRT ---
Current Diagnoses Other idiopathic scoliosis, thoracolumbar region (05/16/18) Spondylolisthesis, lumbar region (05/16/18) Spinal stenosis, lumbar region with neurogenic claudication (05/16/18) Arthrodesis status (05/16/18) Surgery Performed Operation Date: 05/16/18 07:45 Actual Procedures p L4-5,L5-S1 TLIF w/Posterior Instru. - Jazmin Molina MD Occupational Therapy Treatment Note M2 OT-IP Current Condition Start: 05/17/18 14:23 Freq: Status: Active Protocol: Document 05/17/18 14:05 PJM (Rec: 05/17/18 14:42 PJM [id number]) Occupational Therapy Current Condition Current Condition Evaluation Date 05/17/18 Treatment Diagnosis decreased self care/functional mobility s/p L4-S1 TLIF Post Operative Precautions Lumbar Precautions Log Roll No Twisting Limit Bending Lifting Restriction of 10 lbs Gait Belt above Incisional Area Other Precautions Pt PA's note: pt will need a back brace but no MD order found. Called PA and stated that she has to clarify with Dr. Molina on what type of brace is needed but pt is cleared to get up with PT at this time even without the brace. M3 OT- IP Subjective and Pain Start: 05/17/18 14:23 Freq: Status: Active Protocol: Document 05/18/18 10:42 PJM (Rec: 05/18/18 13:37 PJM [id number]) OT- Subjective Occupational Therapy Visit Type Type Treatment Note Visit Start Time 10:05 Visit Stop Time 10:42 Total Visit Minutes 37 Notes Pt' s present for this session for education. Occupational Therapy Visit Comments Patient Comments I feel much better today now that I am off oxycodone. I don't like that stuff. It makes me feel too sleepy. Patient/Caregiver Goals to go home tomorrow OT Pain Assessment Pain When Pain Assessed After Treatment Pain Present Pain Present Pain Reported Location Head Intensity 5 Scale Used Numeric (1 - 10) Description Aching Acute M6 OT- IP Functional Cognition Start: 05/17/18 14:23 Freq: Status: Active Protocol: Document 05/18/18 10:42 PJM (Rec: 05/18/18 13:37 PJ [id number]) Cognitive Factors Limiting Selfcare Function Cognitive Ability Level of Alertness Alert Patient Orientation Name Age Birthday Month Date Year Day of Week Place Situation Attention Span Ability Capable of Focused Attention Capable of Sustained Attention Ability to Follow Commands Able to Follow One Step Commands Cognitive Comments Cognitive Assessment Comments Pt has faster speed of processing and brighter affect today. M7 OT- IP Mobility and Balance Start: 05/17/18 14:23 Freq: Status: Active Protocol: Document 05/18/18 10:42 JLUIS (Rec: 05/18/18 13:37 PJ [id number]) OT- Bed Mobility Assessment Rolling Type of Rolling Roll to Left Level of Assistance Moderate Assistance 1 Person Assistance Supine to Sit Supine to Sit Assist Minimal Assistance 1 Person Assistance Scooting Scooting to Edge of Bed Minimal Assistance 1 Person Assistance OT-Transfer Assessment Sit to and From Stand Sit to and from Stand Contact Guard Assistance 1 Person Assistance Transfers Transfer Ability Contact Guard Assistance 1 Person Assistance Technique Transfer Destination Chair Transfer Technique Stand Step Pivot Devices Transfer Assistive Devices Gait Belt Front Wheeled Walker Comments Mobility Comments BP 120/73 in supine BP 112/67, sitting EOB BP 106/49 after 5 min in chair BP 101/63 after 15 min in chair so elevated legs. RN aware. OT- Gait Assessment Comments Gait Ability Comments did not occur due to BP's drifitng down and pt c/o mild lightheadedness. OT- Balance Assessment Sitting Balance and Reactions Static Sitting Balance Ability Good Standing Balance and Reactions Static Standing Balance Ability Good M9 OT- IP Assessment and Plan Start: 05/17/18 14:23 Freq: Status: Active Protocol: Document 05/18/18 10:42 JLUIS (Rec: 05/18/18 13:37 CARSON [id number]) OT Summary Assessment and Plan Potential Rehabilitation Potential Good Summary OT Impairments Balance Functional Mobility Dressing Toileting Bathing Toilet Transfers Shower Transfers Progress Towards Goals Slow Progress due to Medical Issues Assessment Summary Pt's pain level better controlled today; however, pt remains borderline orthostatic and this continues to limit her participation in functional mobility and progression to grooming at sink, toielting, and showering. Pt performs slowly with frequent rest break required due to feeling light headeded. Will continue to progress with self care skills training as per plan of care as medical status permits. Pt still hoping for home discharge tomorrow if activity tolerance improves. Goals Grooming Goal Independent Dressing Goal Independent Toileting Goal Independent Bathing Goal Minimal Assistance Toilet Transfer Goal Independent Raised Toilet Seat With Rails Shower Transfer Goal Minimal Assistance OT-Other Goals Grooming to be done standing at sink with good body mechanics. Dressing is for upper body only. to assist with lower body dressing PRN. Days to Meet Goals 2 Frequency of Treatment Frequency Of Treatment Once a Day Treatment Plan OT Treatment Plan ADL Training Functional Mobility Patient/Family Education Discharge Planning Discharge Recommendations OT Discharge Recommendations Home with 04/01 Assist Home Equipment Needs to obtain long bath brush for pt
[2018-05-18 11:15] VITALS: BP 111/60; PULSE 96; RESP 16; TEMP 36.1; O2SAT 92
--- NOTE | 2018-05-18 11:58 | PT.IPTN ---
Current Diagnoses Other idiopathic scoliosis, thoracolumbar region (05/16/18) Spondylolisthesis, lumbar region (05/16/18) Spinal stenosis, lumbar region with neurogenic claudication (05/16/18) Arthrodesis status (05/16/18) Surgery Performed Operation Date: 05/16/18 07:45 Actual Procedures p L4-5,L5-S1 TLIF w/Posterior Instru. - Jazmin Mcneill MD Physical Therapy Treatment Note M2 PT-IP Current Condition Start: 05/16/18 15:36 Freq: NEEDED Status: Active Protocol: Document 05/17/18 11:23 AB (Rec: 05/17/18 13:17 AB [id number]) Physical Therapy Current Condition Current Condition Evaluation Date 05/17/18 Treatment Diagnosis s/p L4-5, L5S1 TLIF/lami; difficulty in walking Onset Date 05/16/18 Precautions Lumbar Precautions Log Roll No Twisting Limit Bending Lifting Restriction of 10 lbs Gait Belt above Incisional Area Other Precautions Pt PA's note: pt will need a back brace but no MD order found. Called PA and stated that she has to clarify with Dr. mcneill on what type of brace is needed but pt is cleared to get up with PT at this time even without the brace. M3 PT-IP Subjective Start: 05/16/18 15:36 Freq: NEEDED Status: Active Protocol: Document 05/18/18 11:49 GGD (Rec: 05/18/18 11:58 GGD [id number]) Subjective Physical Therapy Visit Type Type Treatment Note Visit Start Time 11:10 Visit Stop Time 11:35 Total Visit Minutes 15 Number of SANDWICH AND DRINK CART OPERATOR Visits 1 Physical Therapy Visit Comments Patient Comments Pt states that she is light headed. Therapy Pain Assessment Pain When Pain Assessed At Rest Pain Present Pain Present Pain Reported Location Lower Back Intensity 2 Scale Used Numeric (1 - 10) M4 PT-IP Mobility and Gait Start: 05/16/18 15:36 Freq: NEEDED Status: Active Protocol: Document 05/18/18 11:35 GGD (Rec: 05/18/18 11:58 GGD [id number]) PT-Transfer Assessment Sit to and From Stand Sit to and from Stand Contact Guard Assistance 1 Person Assistance Use of Upper Extremities Equipment Transfer Assistive Device Gait Belt Front Wheeled Walker Transfers Transfer Destination Chair Comments Mobility Comments BP in sitting 111/60 in standing 91/52. Pt c/o have increase in lightheadness. M5 PT-IP Objective Assessments Start: 05/16/18 15:36 Freq: NEEDED Status: Active Protocol: Document 05/17/18 11:23 AB (Rec: 05/17/18 13:17 AB [id number]) Orientation Orientation/Cognition Level of Alertness Alert Orientation Name Age Birthday Month Date Year Day of Week Place Situation Gross Range of Motion Lower Extremity ROM Assessment Within Functional Limits Strength Lower Extremity Strength Assessment Bilaterally Impaired Comments Strength Comments BLE 3+/5 Other Assessments Other Other Assessments pt with dextroscoliosis with rib hump M6 PT-IP Treatment Start: 05/16/18 15:36 Freq: NEEDED Status: Active Protocol: Document 05/18/18 11:49 GGD (Rec: 05/18/18 11:58 GGD [id number]) Physical Therapy Treatment Education Education Provided Precautions M7 PT-IP Assessment and Plan Start: 05/16/18 15:36 Freq: NEEDED Status: Active Protocol: Document 05/18/18 11:49 GGD (Rec: 05/18/18 11:58 GGD [id number]) PT Summary Assessment and Plan Summary Assessment Summary Pt improving with sit to stand . She need less assist for scoot in chair and with sit to stand. She did have decrease in BP and increase in lightheadedness with mobility. Frequency of Treatment Frequency Of Treatment Twice a Day Treatment Plan Physical Therapy Treatment Plan Bed Mobility Training Transfer Training Gait Training Therapeutic Exercise Balance Retraining Post Op Education Discharge Planning Hot or Cold Pack Neuromuscular Re-ed Coordination Retraining Manual Therapy Recommendations To Nursing Amount of Assist Needed 2 Person Assist Discharge Recommendations PT Discharge Recommendations Home with 24/7 Assist SNF Rehab
--- NOTE | 2018-05-18 14:45 | PT.IPTN ---
Current Diagnoses Other idiopathic scoliosis, thoracolumbar region (05/16/18) Spondylolisthesis, lumbar region (05/16/18) Spinal stenosis, lumbar region with neurogenic claudication (05/16/18) Arthrodesis status (05/16/18) Surgery Performed Operation Date: 05/16/18 07:45 Actual Procedures p L4-5,L5-S1 TLIF w/Posterior Instru. - Jazmin Mcneill MD Physical Therapy Treatment Note M2 PT-IP Current Condition Start: 05/16/18 15:36 Freq: NEEDED Status: Active Protocol: Document 05/17/18 11:23 AB (Rec: 05/17/18 13:17 AB [id number]) Physical Therapy Current Condition Current Condition Evaluation Date 05/17/18 Treatment Diagnosis s/p L4-5, L5S1 TLIF/lami; difficulty in walking Onset Date 05/16/18 Precautions Lumbar Precautions Log Roll No Twisting Limit Bending Lifting Restriction of 10 lbs Gait Belt above Incisional Area Other Precautions Pt PA's note: pt will need a back brace but no MD order found. Called PA and stated that she has to clarify with Dr. mcneill on what type of brace is needed but pt is cleared to get up with PT at this time even without the brace. M3 PT-IP Subjective Start: 05/16/18 15:36 Freq: NEEDED Status: Active Protocol: Document 05/18/18 14:45 GGD (Rec: 05/18/18 15:22 GGD [email or web address]) Subjective Physical Therapy Visit Type Type Treatment Note Visit Start Time 14:00 Visit Stop Time 14:45 Total Visit Minutes 45 Number of PARKING WORKER Visits 2 Physical Therapy Visit Comments Patient Comments Pt states she feeling better and is ready to go back to bed . Therapy Pain Assessment Pain When Pain Assessed At Rest Pain Present Pain Present Pain Reported M4 PT-IP Mobility and Gait Start: 05/16/18 15:36 Freq: NEEDED Status: Active Protocol: Document 05/18/18 14:45 GGD (Rec: 05/18/18 15:22 GGD [id number]) PT-Bed Mobility Assessment Rolling Type of Rolling Log Rolling Roll to Left Level of Assist Minimal Assistance Sit to Supine Sit to Supine Moderate Assistance 1 Person Assistance Bedrails Scooting Scooting to Edge of Bed Contact Guard Assistance PT-Transfer Assessment Sit to and From Stand Sit to and from Stand Contact Guard Assistance 1 Person Assistance Use of Upper Extremities Equipment Transfer Assistive Device Gait Belt Front Wheeled Walker Transfers Transfer Destination Chair Comments Mobility Comments BP in sitting 110/69 in standing 117/72. Gait Assessment Gait Gait Assistance Required: Contact Guard Assist Distance (Feet) 40 Able to Maintain Weight Bearing Status Yes During Gait Assistive Devices Assistive Device Gait Belt Front Wheeled Walker Orthotic/Prosthetic Devices or Brace: No Gait Deviations General Gait Pattern Decreased Stride Length Decreased Feet Clearance Factors Limiting Gait Function Factors Limiting Gait Function Decreased Activity Tolerance Decreased Strength Pain M5 PT-IP Objective Assessments Start: 05/16/18 15:36 Freq: NEEDED Status: Active Protocol: Document 05/17/18 11:23 AB (Rec: 05/17/18 13:17 AB [id number]) Orientation Orientation/Cognition Level of Alertness Alert Orientation Name Age Birthday Month Date Year Day of Week Place Situation Gross Range of Motion Lower Extremity ROM Assessment Within Functional Limits Strength Lower Extremity Strength Assessment Bilaterally Impaired Comments Strength Comments BLE 3+/5 Other Assessments Other Other Assessments pt with dextroscoliosis with rib hump M6 PT-IP Treatment Start: 05/16/18 15:36 Freq: NEEDED Status: Active Protocol: Document 05/18/18 14:45 GGD (Rec: 05/18/18 15:22 GGD [email or web address]) Physical Therapy Treatment Education Education Provided Precautions M7 PT-IP Assessment and Plan Start: 05/16/18 15:36 Freq: NEEDED Status: Active Protocol: Document 05/18/18 14:45 GGD (Rec: 05/18/18 15:22 GGD [email or web address]) PT Summary Assessment and Plan Summary Assessment Summary Pt able to progress gait and mobility. She did need assist with LE for bed mobility. She needed less assist for scooting and sit to stand. Frequency of Treatment Frequency Of Treatment Twice a Day Recommendations To Nursing Amount of Assist Needed 1 Person Assist Discharge Recommendations PT Discharge Recommendations Home with Assistance Home with 04/01 Assist
[2018-05-18 15:27] VITALS: BP 123/75; PULSE 76; RESP 18; TEMP 37.2; O2SAT 97
[2018-05-18] MEDS: POTASSIUM CHLORIDE 10 MEQ TAB PO (17:17)
[2018-05-18 19:27] VITALS: BP 123/72; PULSE 94; RESP 18; TEMP 36.8; O2SAT 92
[2018-05-18] MEDS: SENNOSIDES 8.6 MG TABLET 17.2 MG PO (21:40)
[2018-05-19] VITALS: BP 112/64; PULSE 93; RESP 16; TEMP 36.9; O2SAT 93
[2018-05-19] MEDS: HYDROCODONE/ACET 5/325 TABLET 2 TAB PO (01:43)
[2018-05-19] MEDS: OXYCODONE IR 5 MG TABLET 10 MG PO (05:39)
[2018-05-19] MEDS: LEVOTHYROXINE 100 MCG TABLET 200 MCG PO (05:41)
[2018-05-19 06:09] VITALS: BP 117/77; PULSE 94; RESP 16; TEMP 37.2; O2SAT 93
--- NOTE | 2018-05-19 06:24 | PC.NURSE ---
Shift note: Pt requested pain medication Q4 per AUG, at 0140 this RN was notified by [facility] that pt was 100mg short of reaching max dose of APAP/24hrs. Discussed with pt that [place] would no longer be available due to the fact that it contained 325mg of APAP per dose and recommended using Percolone instead. Pt was amenable to this and was given dose per AUG and request at 0540. Pt has had no c/o headache or nausea on shift and consistently rated pain at 4/10 on pain scale. Hubert was d/c's at 0545 to encourage ambulation and reduce risk of CAUTI infection, pt was also educated that she would need to void within 8 hours of removal and encouraged to hydrate, pt acknowledged understanding of removal and post void needs.
[2018-05-19 07:20] VITALS: BP 120/78; PULSE 90; RESP 20; TEMP 36.7; O2SAT 94
--- NOTE | 2018-05-19 08:54 | PT.IPTN ---
Current Diagnoses Other idiopathic scoliosis, thoracolumbar region (05/16/18) Spondylolisthesis, lumbar region (05/16/18) Spinal stenosis, lumbar region with neurogenic claudication (05/16/18) Arthrodesis status (05/16/18) Surgery Performed Operation Date: 05/16/18 07:45 Actual Procedures p L4-5,L5-S1 TLIF w/Posterior Instru. - Jazmin Molina MD Physical Therapy Treatment Note M2 PT-IP Current Condition Start: 05/16/18 15:36 Freq: NEEDED Status: Active Protocol: Document 05/19/18 08:50 AB (Rec: 05/19/18 08:53 AB [id number]) Physical Therapy Current Condition Current Condition Evaluation Date 05/17/18 Treatment Diagnosis s/p L4-5, L5S1 TLIF/lami; difficulty in walking Onset Date 05/16/18 Precautions Lumbar Precautions Log Roll No Twisting Limit Bending Lifting Restriction of 10 lbs Gait Belt above Incisional Area Other Precautions Pt PA's note: pt will need a back brace but no MD order found. Called PA and stated that she has to clarify with Dr. Molina on what type of brace is needed but pt is cleared to get up with PT at this time even without the brace. Clarification received : PA's note stated that pt does not need a brace at this time due to scoliosis. M3 PT-IP Subjective Start: 05/16/18 15:36 Freq: NEEDED Status: Active Protocol: Document 05/19/18 08:50 AB (Rec: 05/19/18 08:52 AB [id number]) Subjective Physical Therapy Visit Type Type Administrative Note Notes per PA's note dated 05/17/18: pt not requiring a brace at this time due to scoliosis.
--- NOTE | 2018-05-19 09:25 | PT.IPTN ---
Current Diagnoses Other idiopathic scoliosis, thoracolumbar region (05/16/18) Spondylolisthesis, lumbar region (05/16/18) Spinal stenosis, lumbar region with neurogenic claudication (05/16/18) Arthrodesis status (05/16/18) Surgery Performed Operation Date: 05/16/18 07:45 Actual Procedures p L4-5,L5-S1 TLIF w/Posterior Instru. - Jazmin Molina MD Physical Therapy Treatment Note M2 PT-IP Current Condition Start: 05/16/18 15:36 Freq: NEEDED Status: Discharge Protocol: Document 05/19/18 08:50 AB (Rec: 05/19/18 08:53 AB [id number]) Physical Therapy Current Condition Current Condition Evaluation Date 05/17/18 Treatment Diagnosis s/p L4-5, L5S1 TLIF/lami; difficulty in walking Onset Date 05/16/18 Precautions Lumbar Precautions Log Roll No Twisting Limit Bending Lifting Restriction of 10 lbs Gait Belt above Incisional Area Other Precautions Pt PA's note: pt will need a back brace but no MD order found. Called PA and stated that she has to clarify with Dr. Molina on what type of brace is needed but pt is cleared to get up with PT at this time even without the brace. Clarification received : PA's note stated that pt does not need a brace at this time due to scoliosis. M3 PT-IP Subjective Start: 05/16/18 15:36 Freq: NEEDED Status: Discharge Protocol: Document 05/19/18 09:25 GGD (Rec: 05/19/18 11:23 GGD [id number]) Subjective Physical Therapy Visit Type Type Treatment Note Visit Start Time 09:00 Visit Stop Time 09:25 Total Visit Minutes 25 Number of MANUFACTURING TEAM LEADER Visits 3 Physical Therapy Visit Comments Patient Comments Pt states that she needs to use the bathroom. Therapy Pain Assessment Pain When Pain Assessed At Rest Pain Present Pain Present Pain Reported M4 PT-IP Mobility and Gait Start: 05/16/18 15:36 Freq: NEEDED Status: Discharge Protocol: Document 05/19/18 09:25 GGD (Rec: 05/19/18 11:23 GGD [id number]) PT-Bed Mobility Assessment Rolling Type of Rolling Log Rolling Roll to Left Level of Assist Contact Guard Assistance Supine to Sit Supine to Sit Minimal Assistance 1 Person Assistance Sit to Supine Sit to Supine Minimal Assistance 1 Person Assistance Scooting Scooting to Edge of Bed Standby Assistance PT-Transfer Assessment Sit to and From Stand Sit to and from Stand Contact Guard Assistance 1 Person Assistance Use of Upper Extremities Equipment Transfer Assistive Device Gait Belt Front Wheeled Walker Orthotic/Prosthetic Devices or Brace: No Transfers Transfer Destination Bed Toilet Transfer Ability Level of Assist Minimal Assistance Gait Assessment Gait Gait Assistance Required: Contact Guard Assist Distance (Feet) 80 Able to Maintain Weight Bearing Status Yes During Gait Assistive Devices Assistive Device Gait Belt Front Wheeled Walker Orthotic/Prosthetic Devices or Brace: No Gait Deviations General Gait Pattern Decreased Stride Length Decreased Feet Clearance Factors Limiting Gait Function Factors Limiting Gait Function Decreased Activity Tolerance Decreased Strength Pain M5 PT-IP Objective Assessments Start: 05/16/18 15:36 Freq: NEEDED Status: Discharge Protocol: Document 05/17/18 11:23 AB (Rec: 05/17/18 13:17 AB [id number]) Orientation Orientation/Cognition Level of Alertness Alert Orientation Name Age Birthday Month Date Year Day of Week Place Situation Gross Range of Motion Lower Extremity ROM Assessment Within Functional Limits Strength Lower Extremity Strength Assessment Bilaterally Impaired Comments Strength Comments BLE 3+/5 Other Assessments Other Other Assessments pt with dextroscoliosis with rib hump M6 PT-IP Treatment Start: 05/16/18 15:36 Freq: NEEDED Status: Discharge Protocol: Document 05/19/18 09:25 GGD (Rec: 05/19/18 11:23 GGD [id number]) Physical Therapy Treatment Education Education Provided Precautions M7 PT-IP Assessment and Plan Start: 05/16/18 15:36 Freq: NEEDED Status: Discharge Protocol: Document 05/19/18 09:25 GGD (Rec: 05/19/18 11:23 GGD [id number]) PT Summary Assessment and Plan Summary Assessment Summary Pt improving with mobility. She was able to progress her gait distance and tolerance. She need less assist with bed mobility, but did need assist with LE which is her base line . She is safe for D/C home when medically stable. Frequency of Treatment Frequency Of Treatment Twice a Day Recommendations To Nursing Amount of Assist Needed 1 Person Assist Discharge Recommendations PT Discharge Recommendations Home with Assistance Home with 04/01 Assist
--- NOTE | 2018-05-19 09:25 | PM.DS.1 ---
History of Present Illness Date Patient Seen: 05/19/18 Time Patient Seen: 09:25 Chief complaint: [id number] Narrative: Hospital day 4, postop day 3 following L4-5, L5-S1 TLIF with cage and posterior screw fixation by Dr. Molina. She has remained stable postoperatively except for continued headache problem. She had side effects from oxycodone. She did do well with [place] 5/325 mg for pain relief but was having to take 2 tablets at a time and had maxed out her acetaminophen dose for the day. Has had Gaspar catheter removed earlier today and patient has voided. She was up with physical therapy yesterday and was cleared for going home. Patient would like to go home today and her is okay with this. Discharge Providers Date of admission: 05/16/18 06:39 Consults: 05/16/18 13:29 Consult to Occupational Therapy Evaluate & Treat Comment: Physician Instructions: Evaluate and treat Consult to Physical Therapy Evaluate & Treat Comment: Physician Instructions: Evaluate and Treat Discharge provider: Donis Kitchen PA-C Discharge Date: 05/19/18 Summary Discharge Diagnosis: Status post L4-5, L5-S1 TLIF, cage and posterior screw fixation Hospital Course: Patient brought to hospital on 05/16/2018 for above noted surgery. She remained stable orthopedically. Did have some ongoing headache problems with history of chronic headache. Did have adverse side effects with oxycodone. She did do better with [place] but had maxed out on her Tylenol dose for 24 hr. She was changed to [place] 10/325 mg to decrease amount of Tylenol she received. Patient was ready for discharge home on postop day 3. Status at Discharge Cognitive/behavioral status at discharge: Alert, oriented no acute distress. Functional status at discharge: uses cane/walker Overall status at discharge: patient is progressing back to baseline Time Spent with Patient Less than 30 minutes Exam Vital Signs (past 8 hours): - 05/19/18 06:09 Temperature 98.9 F Pulse Rate 94 H Respiratory Rate 16 Blood Pressure 117/77 Pulse Oximetry 93 Oxygen Delivery Method Room Air Oxygen Flow Rate 0 Narrative Exam Narrative: Back. Dressing is dry without drainage or inflammation. Legs. No calf pain or swelling. Pulses symmetrical. Good sensation to touch to lower legs. Ankle dorsiflexion plantar flexion strong bilateral. Objective Labs Result Diagrams: 05/17/18 04:58 Discharge Plan Discharge Plan Patient Disposition: Home Discharge Med Rec/Prescriptions Prescriptions: New hydrocodone-acetaminophen 10-325 mg Tablet 1 tab PO Q4HR PRN (Reason: Pain, Moderate (4-6)) Qty: 30 RF: 0 hydroxyzine pamoate 25 mg Capsule 25 mg PO Q4HR PRN (Reason: Nausea And Vomiting) Qty: 30 RF: 0 Continue potassium chloride [K-Tab] 10 mEq Tablet Extended Release 20 meq PO DAILY RF: 0 potassium chloride [K-Tab] 10 mEq Tablet Extended Release 10 meq PO QPM RF: 0 levothyroxine 100 mcg Tablet 200 mcg PO DAILY RF: 0 furosemide 80 mg Tablet 80 mg PO DAILY RF: 0 baclofen 10 mg Tablet 10 mg PO TID RF: 0 glucosamine sulfate [Glucosamine] 500 mg Tablet 1 dose PO DIRECTED RF: 0 aspirin [Aspirin Childrens] 81 mg Tablet,Chewable 81 mg PO DAILY RF: 0 Discontinued acetaminophen-codeine 300-30 mg Tablet 1 tab PO Q4H PRN (Reason: Pain) RF: 0 diphenhydramine-acetaminophen [Acetaminophen PM] 25-500 mg Tablet 2 tab PO BEDTIME PRN (Reason: Pain/Sleep) RF: 0 ahvkypj-mvatvsmerezaa-[id number] [Excedrin Extra Strength] 250-250-65 mg Tablet 2 tab PO Q4-6H PRN (Reason: Pain) RF: 0 Provider Discharge Instructions Diet: Diet as Tolerated Activity: Avoid excessive lumbar bending or twisting. No lifting or carrying more than 5-10 lb. Ambulate as tolerated. Skin/Wound/Dressing Care Report to your healthcare provider any signs of infection, such as:: chills, fever, night sweats, increased pain, unusual drainage and unusual redness Dressing: Keep dressing in place until postop visit. Visit Report/Discharge Packet Instructions: DI for Transforaminal Lumbar Interbody Fusion Discharge Data Attending Provider: Jazmin Molina Admit Date/Time: 05/16/18 06:39 Quality VTE Deep Vein Thrombosis/Pulmonary Embolism Present on Admission: No
[2018-05-19] MEDS: POTASSIUM CHLORIDE 10 MEQ TAB 20 MEQ PO (09:34)
[2018-05-19] MEDS: DOCUSATE 100 MG CAPSULE PO (09:34)
[2018-05-19] MEDS: HYDROCODONE/ACET 10/325 TABLET 1 TAB PO (09:36)
--- NOTE | 2018-05-19 10:08 | OT.IP.TRT ---
Current Diagnoses Other idiopathic scoliosis, thoracolumbar region (05/16/18) Spondylolisthesis, lumbar region (05/16/18) Spinal stenosis, lumbar region with neurogenic claudication (05/16/18) Arthrodesis status (05/16/18) Surgery Performed Operation Date: 05/16/18 07:45 Actual Procedures p L4-5,L5-S1 TLIF w/Posterior Instru. - Jazmin Molina MD Occupational Therapy Treatment Note M3 OT- IP Subjective and Pain Start: 05/17/18 14:23 Freq: Status: Active Protocol: Document 05/19/18 10:06 PJM (Rec: 05/19/18 12:59 PJM [id number]) OT- Subjective Occupational Therapy Visit Type Type Treatment Note Visit Start Time 09:56 Visit Stop Time 10:06 Total Visit Minutes 8 Notes Pt's here for education. Occupational Therapy Visit Comments Patient Comments I walked the whole loop and my blood pressure stayed up. Patient/Caregiver Goals to go home today OT Pain Assessment Pain When Pain Assessed At Rest Pain Present Pain Present Pain Reported Location Lower Back Intensity 3 Description Aching Acute M4 OT- IP ADL's Start: 05/17/18 14:23 Freq: Status: Active Protocol: Document 05/19/18 10:06 PJM (Rec: 05/19/18 12:59 PJM [id number]) OT ADL-Grooming Comments OT Grooming Comments Pt declined to get up to sink, but provided education re: body mechanics. Pt verbalizes understanding. OT ADL-Oral Care Comments Oral Care Comments Pt declined to get up to sink, but provided education re: body mechanics.Pt verbalizes understanding. OT ADL-Dressing Comments OT Dressing Comments Pt prefers to assist with lower body dressing and declines adaptive equipment OT ADL-Toileting General Evaluation Toileting Ability Standby Assistance Devices Toileting Assistive Devices Raised Toilet Seat Comments OT Toileting Comments Provided education re: body mechanics for elmer care. Pt/ verbalize understanding. OT ADL-Bathing Comments OT Bathing Comments Pt declines to shower here, prefers to shower with assist from at home. Pt verbalizes understanding of precautions. M9 OT- IP Assessment and Plan Start: 05/17/18 14:23 Freq: Status: Active Protocol: Document 05/19/18 10:06 PJM (Rec: 05/19/18 12:59 PJM [id number]) OT Summary Assessment and Plan Potential Rehabilitation Potential Good Summary Progress Towards Goals Safe For Discharge Goals Met Assessment Summary All OT education completed re: adapted ADLS within lumbar spine precautions. Pt/ verbalize understanding. Attentive Attentive will provide 24 hr assist at home PRN. Pt plans to d/c later today. No further OT services needed. Frequency of Treatment Frequency Of Treatment Discharge Discharge Recommendations OT Discharge Recommendations Home with 24/ Assist
--- NOTE | 2018-05-19 11:18 | PC.NURSE ---
Day shift: Pt left unit at approx 1100 with spouse and this fha underwriter via WC to private vehicle. Paperwork signed and all questions answered. Pt has scrips and all personal belongings.
== END 2018-05-19 11:19 | disposition home or self-care (01) | DRG 455 ==
PROVIDERS: Admitting Provider Orthopaedic Surgery Orthopaedic Surgery of the Spine; Visit Provider Orthopaedic Surgery Orthopaedic Surgery of the Spine
PROC: 0SG00AJ Fusion of Lumbar Vertebral Joint with Interbody Fusion Device, Posterior Approach, Anterior Column, Open Approach (ICD-10-PCS; principal; 2018-05-16 07:45)
DX: M43.16 Spondylolisthesis, lumbar region (principal); M41.26 Other idiopathic scoliosis, lumbar region; M48.062 Spinal stenosis, lumbar region with neurogenic claudication; I45.10 Unspecified right bundle-branch block; Z87.891 Personal history of nicotine dependence; M48.07 Spinal stenosis, lumbosacral region; R51 Headache
CPT/HCPCS: 36415; 72100; 76001; 85014; 85018; 94760; 97116; 97162; 97165; 97530; 97535; C1776; C9290; J0131; J0330; J0690; J1100; J1170; J2405; J2704; J3010

== ENCOUNTER → 2020-06-04 11:01 | Outpatient (CLI) | payer MEDICARE, OTHER, SELFPAY ==
[2018-05-16 13:38] VITALS: BMI 23.6
[2020-06-04 11:15] LABS: Bacteria Urine None Seen; RBC Urine None Seen (0-5/HPF); WBC Urine None Seen (0-5/HPF)
[2020-06-04 11:40] LABS: Add Manual Diff / Slide Review NO; Basophils Absolute Auto 100 /uL (0-100); Basophils Percent Auto 2.2 % (0-2); Eosinophils Absolute Auto 500 /uL (0-450); Hematocrit 36.3 % (36-46); Hemoglobin 12.3 g/dL (12.0-16.0); Lymphocytes Absolute Auto 2000 /uL (1100-4500); Lymphocytes Percent Auto 47.6 % (25-40); Mean Corpuscular HGB Conc 33.9 % (30-36); Mean Corpuscular Hemoglobin 32.9 PG (26-34); Mean Corpuscular Volume 97.1 fL (80-100); Monocytes Absolute Auto 400 /uL (0-900); Monocytes Percent Auto 9.5 % (3-14); Neutrophils Absolute Auto 1200 /uL (1500-7000); Neutrophils Percent Auto 28.7 % (50-75); Platelet Count 188 X10^3/uL (150-400); Red Blood Cell Count 3.74 X10^6/uL (4.0-5.2); Red Cell Distribution Width 13.3 % (11.6-14.8); White Blood Cell Count 4.3 X10^3/uL (4.5-11.0)
[2020-06-04 11:56] LABS: BUN Creatinine Ratio 25.9 (6-22); Blood Urea Nitrogen 14 mg/dL (7-17); Calcium 9.3 mg/dL (8.4-10.2); Carbon Dioxide 30 mmol/L (22-32); Chloride 103 mmol/L (98-107); Estimated Glomerular Filt Rate > 60.0 mL/min (>60); Glucose 89 mg/dL (80-110); HEMOLYSIS < 15 (0-50); Sodium 136 mmol/L (137-145)
[2020-06-04 12:57] LABS: Appearance Urine UA CLEAR; Bilirubin Urine UA NEGATIVE (NEGATIVE); Color Urine UA YELLOW; Glucose Urine UA NEGATIVE (Negative); Ketones Urine UA NEGATIVE (NEGATIVE); Leukocyte Esterase Urine UA NEGATIVE (NEGATIVE); Nitrite Urine UA NEGATIVE (Negative); Occult Blood Urine UA NEGATIVE (Negative); Protein Urine UA NEGATIVE (Negative); Specific Gravity Urine UA 1.015 (1.000-1.035); Urobilinogen Urine UA 0.2 E.U./dL (0.2)
[2020-06-04 13:04] LABS: pH Urine UA 6.5 (4.5-8.0)
[2020-06-04 13:07] LABS: Culture Indicated Urine Cult Not Indicated; Urine Comments Microscopic Normal
== END ==
PROVIDERS: PCP Family Medicine Sports Medicine; Referring Provider Orthopaedic Surgery; Visit Provider Orthopaedic Surgery
DX: Z01.818 Encounter for other preprocedural examination (principal); R73.9 Hyperglycemia, unspecified; Z01.812 Encounter for preprocedural laboratory examination; N39.0 Urinary tract infection, site not specified
CPT/HCPCS: 36415; 80048; 81001; 83036; 85025; 93005

== ENCOUNTER → 2020-06-12 11:01 | Outpatient (CLI) | payer MEDICARE, OTHER, SELFPAY ==
[2018-05-16 13:38] VITALS: BMI 23.6
[2020-06-12 13:10] LABS: COVID19 -Nasal RAPID Negative (Negative)
== END ==
PROVIDERS: PCP Family Medicine Sports Medicine; Visit Provider Nurse Practitioner
DX: Z01.812 Encounter for preprocedural laboratory examination (principal); Z20.828 Contact with and (suspected) exposure to other viral communicable diseases
CPT/HCPCS: 87635; C9803

== ENCOUNTER 2020-06-13 09:05 | Day surgery (SDC) | payer MEDICARE, OTHER, SELFPAY ==
[2018-05-16 13:38] VITALS: BMI 23.6
[2020-06-12 13:56] VITALS: BMI 21.4
[2020-06-13] VITALS (17 sets, daily range): BP systolic 99–133; BP diastolic 41–78; PULSE 68–102; RESP 10–16; TEMP 36.1–37.4; O2SAT 95–98; BMI 21.5
--- NOTE | 2020-06-13 | DI.RAD.S_ITS ---
PROCEDURE: [id number] W PEL IF PERFORMED INDICATIONS: HIP ARTHROPLASTY TECHNIQUE: Three views of the left hip. COMPARISON: [facility] [place], [place], XR PELVIS WITH BILATERAL LATERAL HIPS, 06/03/2020, 10:25. FINDINGS: 3 intraoperative fluoroscopic views obtained for surgical guidance demonstrates placement of left hip prosthetic components. IMPRESSION: 1. Intraoperative films obtained for surgical guidance demonstrates placement of left hip prosthetic components. Dictated by: Xander Ann M.D. on 06/13/2020 at 15:06 Approved by: Xander Ann M.D. on 06/13/2020 at 15:07
--- NOTE | 2020-06-13 07:50 | DI.RAD.S_ITS ---
PROCEDURE: XR HIP W PEL IF DONE LT 2V INDICATIONS: LOURDES TECHNIQUE: AP pelvis and lateral view of the left hip acquired. COMPARISON: [facility], CR, [id number] W PEL IF PERFORMED, 06/13/2020, 14:13. FINDINGS: Bones: Patient is status post left total hip arthroplasty, with hardware components in expected positions. The hip joint appears congruent. The visualized bony structures appear intact. Severe degenerative change of the right hip. Soft tissues: Overlying postoperative changes are noted. No suspicious soft tissue densities. IMPRESSION: Expected appearance of the left total hip arthroplasty. Dictated by: Mathew Hartley M.D. on 06/13/2020 at 16:01 Approved by: Mathew Hartley M.D. on 06/13/2020 at 16:01
[2020-06-13] MEDS: ACETAMINOPHEN 325 MG TABLET 975 MG PO (09:27)
[2020-06-13] MEDS: CELECOXIB 200 MG CAPSULE PO (09:28)
[2020-06-13] MEDS: PREGABALIN 75 MG CAPSULE PO (09:28)
[2020-06-13] MEDS: LACTATED RINGERS 1,000 ML 42 ML IV ×2 (09:55→14:51)
[2020-06-13] MEDS: VANCOMYCIN 1,000 MG/200 ML PIGGYBACK 200 MG IV (10:10)
--- NOTE | 2020-06-13 11:01 | PM.PREOP ---
Pre-operative Note Interval Note History & Physical reviewed/Exam performed by Physician: Yes Changes to H&P: No
[2020-06-13] MEDS: CEFAZOLIN 2 GM/100 ML FROZ.PIGGY IV ×2 (11:35→20:39)
[2020-06-13] MEDS: BUPIVACAINE 0.25% W/ EPI (PF) 10 ML VIAL 20 ML INJ (12:36)
[2020-06-13] MEDS: TRANEXAMIC ACID 1,000 MG VIAL 2000 MG INJ ×2 (12:41→14:54)
[2020-06-13] MEDS: BUPIVACAINE LIPOSOME 266 MG/20 ML VIAL INJ (12:41)
--- NOTE | 2020-06-13 12:44 | SUR.OPER ---
Supine on padded Warren table with bilateral legs secured in padded positioning boots and suspended in positioning spars, operative leg in traction per surgeon. Head on one pillow. Arm on non-operative side secured on padded armboard <90 degrees abduction. Arm on operative side padded and resting across chest then secured with tape over sheet. Padded perineal post in place per surgeon.
--- NOTE | 2020-06-13 15:36 | P.OP_ITS ---
Operative Date/Time/Diagnoses Date of procedure: 06/13/20 Time of procedure: 13:03 Pre-op diagnosis: left hip OA Post-op diagnosis: same Procedure & Clinicians Procedure: Left total hip arthroplasty Same procedure as scheduled: Yes Indications: The patient has had progressively worsening left hip pain with radiographic changes consistent with arthritis. Non-operative management has failed and the patient has requested total hip replacement. The risks, benefits and alternatives to surgery were discussed with the patient prior to proceeding. Risks discussed included, but were not limited to, failure to relieve pain, leg length discrepancy, dislocation, stiffness, infection, nerve damage, deep venous thrombosis, pulmonary embolism, stroke, coma, heart attack, permanent paralysis and , as well as the potential need for eventual revision of the prosthetic. Surgeon: Tonya Vicente Network Associate: Karine Lawrence Anesthesia Type: General Operative Notes Findings: Severe left hip osteoarthritis, adequate stability, soft but adequate bone Closure Type: primary Specimen(s): none sent Prosthetic devices, grafts, tissues, transplants, or devices: Vicente and nephew size 54 mm R3 cup, size 9 standard offset anthology, 36-3 femoral head Oxinium, standard neutral poly liner, 2 additional screws. Estimated Blood Loss (mL): 250 Blood products transfused: none Procedure in detail: The patient was brought to the operating room. Patient was carefully positioned in the supine position. Time-out was performed and antibiotics were given. Anesthesia was induced. She was positioned in the on the table in order to allow hyperextension of the hip. The Left lower extremity was prepped and draped in a standard sterile fashion. An anterior Left hip incision was made 1 fingerbreadth lateral to the anterior superior iliac spine and extended distally towards the greater trochanter. Dissection was carried out through skin and subcutaneous tissues. Superficial hemostasis was achieved. The fascia over the tensor fascia sarthak was defined and incised with a knife. Two Allis clamps were used to grasp the fascia. Tensor fascia sarthak was retracted laterally. A gelpi retractor was placed. Dissection was carried out down along the neck. The circumflex vessels were carefully identified and cauterized with the Aqua Mantis. There was good visualization of the femoral neck. A Cobra was placed superior to the neck and the gluteus fibers were carefully stripped from that superior aspect of the capsule. A 2nd retractor was placed along the inferior aspect of the neck. The rectus insertion along the capsule was partially released. A 3rd retractor that was then gently placed over the rim of the acetabulum under the rectus. Capsule was carefully incised and released from the intertrochanteric line circumferentially superior to the mid sagittal line and inferiorly to the mid sagittal line until the lesser trochanter was palpable. A tag stitch was placed both in the superior and inferior limb of the capsular insertion. Along the acetabulum capsule was also released up to the mid sagittal 12:00 position. A portion of the labrum was resected. A saw was used to perform an osteotomy at the level of the intertrochanteric line and the junction of the superior femoral neck leaving approximately 1 finger breath of residual inferior neck above the lesser trochanter. A 2nd cut was made along the femoral neck at the base of the head and a napkin ring of neck was removed. Corkscrew was placed in the femoral head and the head was removed without difficulty. Retractors were then repositioned around the acetabulum. Residual labrum was resected and additional osteophytes were removed. A reamer that was 4 mm below the templated size was placed by hand in the acetabulum and it was reamed to centralize the acetabulum. It was then reamed up to 2 under the templated size and fluoroscopy was brought in to confirm the position of the reaming and depth of reaming. I reamed 1 under the anticipated size. A trial cup was placed and noted that it was appropriately sized and fluoroscopy confirmed position and depth. The component was open and inserted without difficulty fluoroscopic imaging was used to confirm that the cup had been adequately seated and was well positioned. It was further stabilized with 2 screws. Neutral poly trial liner was placed. The cup was tested and noted to be stable. Attention was then directed to the femur. The femur was gently hyperextended additional capsular release was performed as needed in order to allow adequate visualization of the proximal femur with elevation of the femur. Patient was placed in a hyperextended slightly adducted position with maximum external rotation. Box osteotome was used to check for any residual neck as well as sclerotic bone along the trochanter. [place] pepper was placed in the femur. Additional broaching was performed. Canal finder was used to determine the alignment of the canal and position. Size 1 broach was placed. The canal was then appropriately broached up to the templated size as long as there was adequate stability of the broach and serial advancement of the broach without excessive impingement. Specific attention was directed at avoiding varus attempting to direct the distal aspect of the broach more anteriorly and avoiding excessive anteversion. Trial reduction showed acceptable range of motion, good stability, no posterior impingement, sabianist of leg length and appropriate lateral shuck. I also hyperflexed the hip and checked that there was no impingement anteriorly and there was good stability with flexion, adduction and internal rotation. After confirming that she had adequate stability with a standard liner I decided to proceed with a standard neutral poly liner. Final neutral poly was placed without difficulty. Marcaine and Exparel were injected. The stem was placed without difficulty. Repeat trial reduction and x-ray showed acceptable overall position, length, and no evidence of the femoral fracture. Final head was placed. Wound was meticulously irrigated with normal saline. The hip was reduced and additional Exparel and Marcaine were injected. The capsule was closed with interrupted nonabsorbable sutures. The fascia of the tensor was closed with interrupted and running Vicryl. No drain was placed. Any tensor fascia sarthak muscle that appeared to be contused or inj ured which was a minimal amount was carefully resected. Capsule around the tensor was injected with Exparel and Marcaine. The skin was closed with barbed stitches for the subcutaneous tissue and skin. We also used surgical glue. The wound was dressed sterilely. Brief Betadine soak was also used and was meticulously irrigated with normal saline. Patient was transferred to recovery room in satisfactory condition. Complications: none Post-operative Condition: stable Disposition: Acute Care Plan for aftercare: The patient will be maintained on a standard total hip replacement protocol with weight bearing as tolerated and anterior hip precautions. The patient will receive Aspirin and sequential compression devices for DVT prophylaxis. The patient will be discharged home when safe for the home environment.
[2020-06-13] MEDS: CODEINE/ACETAMINOPHEN 30/300 TABLET 1 TAB PO ×2 (16:00→16:40)
[2020-06-13] MEDS: hydrOXYzine pamoate 25 MG CAPSULE PO (16:00)
--- NOTE | 2020-06-13 16:18 | SUR.PHASEI ---
Delay in taking pt to room 215 as the receiving nurse just received two other fresh surgicals. updated on status and delay in transferring to room.
[2020-06-13] MEDS: LACTATED RINGERS 1,000 ML 125 ML IV (17:42)
[2020-06-13] MEDS: DOCUSATE 100 MG CAPSULE PO (20:39)
[2020-06-13] MEDS: ASPIRIN EC 81 MG TABLET PO (20:39)
[2020-06-13] MEDS: HYDROCODONE/ACET 5/325 TABLET 1 TAB PO (20:39)
[2020-06-14] MEDS: TRAMADOL 50 MG TABLET PO ×3 (00:08→11:01)
[2020-06-14] MEDS: HYDROCODONE/ACET 5/325 TABLET 1 TAB PO ×4 (00:09→12:59)
[2020-06-14] MEDS: LACTATED RINGERS 1,000 ML 125 ML IV (02:04)
--- NOTE | 2020-06-14 02:15 | PC.NURSE ---
Addendum entered by Latisha Church R.N. 06/14/20 05:04: 0500 Pt requesting combo of tramadol and norco, as she felt it worked best for her previously. Monitoring for s/sx of distress. Offered ice pack and cool cloth for headache. Most of her pain is coming from her scoliosis, she says. Original Note: 2300 Received safe hand-off report. The patient is resting in bed. She has a left and right PIV, with the left infusing LR at 125mL/h. She is on room air. The patient has a history of scoliosis and c/o back pain more than post-op hip pain. Informed patient there is an order for tramadol BID PRN, which she takes at home. She requested that as that works best for her back but states my home prescription states I can take it every 6 hours, I believe. I told her I would mention this to the doctor in my note so she may make adjustments to the order as desired.
[2020-06-14 04:20] VITALS: BP 115/67; PULSE 91; RESP 16; TEMP 37; O2SAT 96
[2020-06-14] MEDS: CEFAZOLIN 2 GM/100 ML FROZ.PIGGY IV (04:56)
[2020-06-14 05:45] LABS: Hematocrit 29.5 % (36-46); Hemoglobin 9.9 g/dL (12.0-16.0)
[2020-06-14] MEDS: LEVOTHYROXINE 88 MCG TABLET PO (05:53)
[2020-06-14] MEDS: DOCUSATE 100 MG CAPSULE PO (08:14)
[2020-06-14] MEDS: ASPIRIN EC 81 MG TABLET PO (08:14)
[2020-06-14 08:27] VITALS: BP 116/69; PULSE 76; RESP 15; TEMP 36.8; O2SAT 99
--- NOTE | 2020-06-14 08:52 | PM.PNPO.1 ---
Subjective Subjective Date Patient Seen: 06/14/20 Time Patient Seen: 08:52 Interval history: She is doing well. Minimal pain. Leg still feels somewhat numb. She has not been out of bed yet. Exam Vital Signs (past 8 hours): - 06/14/20 04:20 06/14/20 08:27 Temperature 98.6 F 99.2 F Pulse Rate 91 H 76 Respiratory Rate 16 15 Blood Pressure 115/67 116/69 Pulse Oximetry 96 99 Oxygen Delivery Method Room Air Oxygen Flow Rate 0 Const Orientation: alert and oriented x3 Extrem Other: Left hip dressing CDI. Soft calf, easily wiggles toes. Objective Labs Result Diagrams: 06/14/20 05:05 Labs: Laboratory Results - last 24 hr 06/14/20 05:05 Hgb 9.9 L Hct 29.5 L PFSH Medical History (Updated 05/12/18 @ 10:43 by Jonna Stevenson RN) Bradycardia Chest pain Hypothyroid Leg swelling Other idiopathic scoliosis, thoracolumbar region Postmenopausal Pulmonary HTN RBBB Renal cyst Spinal stenosis, lumbar region with neurogenic claudication Spondylolisthesis, lumbar region Surgical History (Updated 06/12/20 @ 14:02 by Jonna Stevenson RN) History of bilateral tubal ligation History of lithotripsy History of lumbar spinal fusion (05/16/18) History of tonsillectomy S/P epidural steroid injection Social History household members: spouse Smoking Status: Former smoker alcohol intake: current Assessment & Plan Post-op Postoperative Procedures: Procedures Operation Date: 06/13/20 10:45 Actual Procedures Side Surgeon p Total Hip Arthroplasty/Anterior Approach Left Tonya Vicente MD Stable after anterior total hip replacement. Plan to get her up with physical therapy and mobilize this morning. If she is stable, she should be able to go home today.
[2020-06-14 09:33] VITALS: PULSE 65; RESP 14; O2SAT 92
--- NOTE | 2020-06-14 10:14 | PC.NURSE ---
Addendum entered by Maile Fuller R.N. 06/14/20 13:18: Patient given vicodin at 1300, she is planning on discharing home later. Original Note: Assess- Patient is A&Ox3, her l.anterior hip dressing is aquacel and cdi. Patient given 1 vicodin for discomfort for her discomfort, she will also get a tramadol for her lower back pain around 11am. She takes this for pain at home. Using bed petersen this morning but patient is getting up with physical therapy now. is in room and will be helping with her care when she goes home.
--- NOTE | 2020-06-14 11:36 | PT.IIE ---
Current Diagnoses Unilateral primary osteoarthritis, left hip (06/13/20) Surgery Performed Operation Date: 06/13/20 10:45 Actual Procedures p Total Hip Arthroplasty/Anterior Approach(Left) - Tonya Vicente MD Surgical History (Last Updated 06/12/20 @ 14:02 by Jonna Stevenson, RN) History of bilateral tubal ligation History of lithotripsy History of lumbar spinal fusion (05/16/18) History of tonsillectomy S/P epidural steroid injection Medical History (Last Updated 05/12/18 @ 10:43 by Jonna Stevenson RN) Bradycardia Chest pain Hypothyroid Leg swelling Other idiopathic scoliosis, thoracolumbar region Postmenopausal Pulmonary HTN RBBB Renal cyst Spinal stenosis, lumbar region with neurogenic claudication Spondylolisthesis, lumbar region Physical Therapy Inpatient Evaluation/Re-Eval M1 PT/OT-IP Prior Functional Status Start: 06/14/20 11:08 Freq: Status: Active Protocol: Document 06/14/20 10:10 MB (Rec: 06/14/20 11:36 MB [id number]) Medical Review Prior Functional Status Medical History Reviewed Yes Diet/Fluid Consistency Regular Communication WNLs Mobility and Gait I short distances with B hip pain, was practicing with RW pre-op Activities of Daily Living and IADL's I and has assist as needed Prior Functional Level (Other details) Pt had trouble riding in the car d/t urinary incontinence when going to get out of car, she avoided riding in the car as a result Social History Household Members spouse Living Arrangements House Number of Floors (Floors) One Floor Number of Stairs To Enter/Railing? No stairs Home Environment High Toilet,Walk in Shower Home Equipment Front Wheel Walker Employment Status Retired M2 PT-IP Current Condition Start: 06/14/20 11:08 Freq: Status: Active Protocol: Document 06/14/20 10:10 MB (Rec: 06/14/20 11:36 MB [id number]) Physical Therapy Current Condition Current Condition Evaluation Date 06/14/20 Treatment Diagnosis L anterior LOURDES, decreased gait and mobility Precautions Anterior Hip Precautions No Hip Extension,No Hip External Rotation Weight Bearing Status Weight Bearing Status Full Weight Bearing M3 PT-IP Subjective Start: 06/14/20 11:08 Freq: Status: Active Protocol: Document 06/14/20 10:10 MB (Rec: 06/14/20 11:36 MB [id number]) Subjective Physical Therapy Visit Type Type Initial Evaluation Visit Start Time 10:10 Visit Stop Time 11:05 Total Visit Minutes 55 Number of HOUSEKEEPING AND LAUNDRY TEAM LEADER Visits 0 Physical Therapy Visit Comments Patient Comments I've been scared to get out of bed but am okay now that you're here. Patient Goals To go home Therapy Pain Assessment Pain When Pain Assessed At Rest Pain Present Pain Present Pain Reported Location Left Hip Intensity 7 Scale Used Numeric (0 - 10) M4 PT-IP Mobility and Gait Start: 06/14/20 11:08 Freq: Status: Active Protocol: Document 06/14/20 10:10 MB (Rec: 06/14/20 11:36 MB [id number]) PT-Bed Mobility Assessment Supine to Sit Supine to Sit Minimal Assistance,1 Person Assistance,Head of Bed Elevated,Bedrails Sit to Supine Sit to Supine 1 Person Assistance,Head of Bed Elevated,Bedrails Scooting Scooting to Edge of Bed Minimal Assistance PT-Transfer Assessment Sit to and From Stand Sit to and from Stand Contact Guard Assistance,1 Person Assistance,Use of Upper Extremities Equipment Transfer Assistive Device Gait Belt,Front Wheeled Walker Orthotic/Prosthetic Devices or Brace: No Transfers Transfer Destination Bedside Commode Transfer Technique Steps with walker Transfer Ability Level of Assist Minimal Assistance Comments Mobility Comments PT guards left LE for bed mobility, assisting to move it with min A as PT cues pt to scoot to the left. PT provides support of left leg, keeping it in neutral. HOB increased and cues for pt to move right hip and leg and to reach for the left rail with her right hand. Increased time and effort. Cues for scooting forward to EOB to get feet on the floor. B UE support for sitting balance. Right transfer to BSC with pt using her RW and PT assisting with cues for stepping forward first with right foot and backwards first with left foot to get to bedside commode. Cues to touch commode with back of right leg, reach back for commode and to ease out her left foot to avoid force bending of the left leg. 8 steps to do this. PT occ assists with walker, providing CGA to min A. Set-up assist for hygiene after toileting to wipe and to clean hands with sanitized wash cloth. Gait Assessment Gait Gait Assistance Required: Minimum Assistance,1 Person Assist Distance (Feet) 12 Able to Maintain Weight Bearing Status Yes During Gait Assistive Devices Assistive Device Gait Belt,Front Wheeled Walker Orthotic/Prosthetic Devices or Brace: No Gait Deviations General Gait Pattern Antalgic,Decreased Stride Length,Decreased Feet Clearance,Flexed Trunk,Wide Based Gait Factors Limiting Gait Function Factors Limiting Gait Function Decreased Strength,Limited Range of Motion,Pain,Poor Balance Comments Gait Comments Pt gait trains with very wide gait, decreased heel strike, toe off and foot clearance. Slow mobility and heavy UE support. Increased hip and knee flexion with gait. Pt is not at risk for breaking hip ER and extension precautions with retropulsion steps today- -she keeps her trunk and hips flexed. PT-Balance Assessment Sitting Balance and Reactions Static Sitting Balance Ability Fair Dynamic Sitting Balance Ability Fair Standing Balance and Reactions Static Standing Balance Ability Fair Dynamic Standing Balance Ability Fair Device Used RW Comments Other Balance Tests/Deviations/Treatment UE support for dynamic and : static sitting, RW for standing balance and CGA for both sitting EOB and standing today M5 PT-IP Objective Assessments Start: 06/14/20 11:08 Freq: Status: Active Protocol: Document 06/14/20 10:10 MB (Rec: 06/14/20 11:36 MB [id number]) Orientation Orientation/Cognition Level of Alertness Alert Orientation Name,Age,Birthday,Month,Date, Year,Day of Week,Place, Situation Language Function Ability No Deficits Noted Safety Awareness Understands Safety Issues Memory Description No Deficits Noted Gross Range of Motion Upper Extremity ROM Assessment Within Functional Limits Lower Extremity ROM Assessment Bilaterally Impaired Impairments Pt with B guarding of LEs in setting of left LOURDES and right hip pain and needing replacement per pt. Both LEs are edematous, greater on surgical leg. Pt demonstrates 75% normal ROM right HS and less than 50% normal ROM left HS. B ankle ROM is normal with normal DF and great toe extension strength. Strength Upper Extremity Strength Assessment Within Functional Limits Lower Extremity Strength Assessment Bilaterally Impaired Comments Strength Comments MMT deferred in hips and ankles d/t pt guarding and pain. B ankle DF and great toe extension 5/5. Pt presents with weakness in LLE with gait . Sensation Assessment Sensation Gross Sensation WNL Other Assessments Other Other Assessments Orthostatic assessment: BP and HR in RUE: pt hook lyin /64, 64; sitting 126/73, 79; once up on commode: 110/72, 75 . Slow transitional movement and pt reports history of passing out, especially after back surgery M6 PT-IP Treatment Start: 06/14/20 11:08 Freq: Status: Active Protocol: Document 06/14/20 10:10 MB (Rec: 06/14/20 11:36 MB [id number]) Physical Therapy Treatment Exercises Exercises Ankle Pumps,Gluteal Sets,Quad Sets,Heel Slides Education Education Provided Precautions,Weight Bearing Status,Post-Op Packet,Safety Other Treatments Other Treatment Performed Ed pt in avoiding left hip extension and ER for anterior hip precautions by using walker for retropulsion and not taking large backwards steps. Ed in proper height of walker, step-to modifications for pain to be advanced angelique to normal reciprocal gait, benefits of wearing depends if concerned about urinary incontinence for car ride and possibly considering pelvic flooring machine feeder physical therapist (benefits of talking with her doctor about her incontinence concerns--these occurred pre-op). Pt's , [place], nearby for all PT. Encouraged pt to be up with assist in hospital and then when at home with her RW and to ask further exercise questions to OPPT that she will start on 06/18 or 06/19/20. M7 PT-IP Assessment and Plan Start: 06/14/20 11:08 Freq: Status: Active Protocol: Document 06/14/20 10:10 MB (Rec: 06/14/20 11:36 MB [id number]) PT Summary Assessment and Plan Potential Rehabilitation Potential Good Status of Condition at Evaluation Stable Summary Impairments Pain,ROM,Strength,Balance,Bed Mobility,Transfers,Gait, Activity Tolerance Assessment Summary Pt is a 65 y/o female presenting with PMH of scoliosis, lumbar surgery, B hip pain and pt reporting that she needs a right THR as well , B LE edema and recent history of pre-op incontinence that stopped her from riding in the car anymore. Pt underwent left anterior THR last date. She reports history of passing out after lumbar surgery and so PT checks her BP with mobility this date and it is volatile. Pt presents with left greater than right LE edema, decreased AROM, weakness and pain. Her fear of pain seems to be greater than the production of it with mobility and she tolerates getting up to BSC, short gait to recliner and gentle post-op exercises with PT this a.m. PT leaves pt up in recliner with call reardon and nearby and nsg aware that there is no chair alarm and nsg clears this. Pt will benefit from acute and post- acute PT to improve mobility, strength and balance. Barriers to PT include several areas of pain that are chronic, pt's fear of pain, reports of incontinence (not present with PT this morning) and volatile BP with reports of symptomatic light-headedness. Goals Bed Mobility Goal Independent Transfer Goal Independent Gait Goal Independent,Front Wheel Walker Gait Distance 100 Days to Meet Goals 2 Frequency of Treatment Frequency Of Treatment Twice a Day Treatment Plan Physical Therapy Treatment Plan Bed Mobility Training,Transfer Training,Gait Training, Therapeutic Exercise,Balance Retraining,Post Op Education, Discharge Planning,Hot or Cold Pack,Neuromuscular Re-ed, Coordination Retraining,Manual Therapy Recommendations To Nursing Amount of Assist Needed Standby Assistance,1 Person Assist Discharge Recommendations PT Discharge Recommendations Home with 24/7 Assist, Outpatient PT Equipment Needed for Home Before N/a Discharge Transportation Needs at Discharge Private Vehicle
[2020-06-14 12:15] VITALS: BP 121/71; PULSE 65; RESP 14; TEMP 36.7; O2SAT 99
--- NOTE | 2020-06-14 14:59 | PT.IPTN ---
Current Diagnoses Unilateral primary osteoarthritis, left hip (06/13/20) Surgery Performed Operation Date: 06/13/20 10:45 Actual Procedures p Total Hip Arthroplasty/Anterior Approach(Left) - Tonya Vicente MD Physical Therapy Treatment Note M2 PT-IP Current Condition Start: 06/14/20 11:08 Freq: Status: Discharge Protocol: Document 06/14/20 10:10 MB (Rec: 06/14/20 11:36 MB [id number]) Physical Therapy Current Condition Current Condition Evaluation Date 06/14/20 Treatment Diagnosis L anterior LOURDES, decreased gait and mobility Precautions Anterior Hip Precautions No Hip Extension,No Hip External Rotation Weight Bearing Status Weight Bearing Status Full Weight Bearing M3 PT-IP Subjective Start: 06/14/20 11:08 Freq: Status: Discharge Protocol: Document 06/14/20 14:22 CLB (Rec: 06/14/20 16:34 CLB [id number]) Subjective Physical Therapy Visit Type Type Treatment Note Visit Start Time 14:22 Visit Stop Time 14:59 Total Visit Minutes 37 Notes present for CG training. Number of OUTSIDE COLLECTOR Visits 1 Physical Therapy Visit Comments Patient Comments Pt ready for therapy so she can go home. Patient Goals To go home Therapy Pain Assessment Pain When Pain Assessed At Rest Pain Present Pain Present Pain Reported Location Left Hip Intensity 3 Scale Used Numeric (0 - 10) M4 PT-IP Mobility and Gait Start: 06/14/20 11:08 Freq: Status: Discharge Protocol: Document 06/14/20 14:22 CLB (Rec: 06/14/20 16:34 CLB [id number]) PT-Bed Mobility Assessment Supine to Sit Supine to Sit Minimal Assistance,1 Person Assistance Sit to Supine Sit to Supine Minimal Assistance,1 Person Assistance Scooting Scooting to Edge of Bed Minimal Assistance PT-Transfer Assessment Sit to and From Stand Sit to and from Stand Standby Assistance,1 Person Assistance,Use of Upper Extremities Equipment Transfer Assistive Device Gait Belt,Front Wheeled Walker Orthotic/Prosthetic Devices or Brace: No Transfers Transfer Destination Bed,Chair Transfer Ability Level of Assist Standby Assistance Comments Mobility Comments Pt in chair upon arrival, pt stood SBA and ambulated ~100ft w/FWW/SBA with using small step to gait to start then was able to step thru while pushing walker. Pt able to then get in and out of bed with assisting with Min A of LLE. Pt then ambulated to chair sitting SBA . Pt left in chair with all needs within reach. Gait Assessment Gait Gait Assistance Required: Standby Assistance,1 Person Assist Distance (Feet) 100 Able to Maintain Weight Bearing Status Yes During Gait Assistive Devices Assistive Device Gait Belt,Front Wheeled Walker Orthotic/Prosthetic Devices or Brace: No Gait Deviations General Gait Pattern Antalgic,Decreased Stride Length,Decreased Feet Clearance,Flexed Trunk,Wide Based Gait Factors Limiting Gait Function Factors Limiting Gait Function Decreased Strength,Limited Range of Motion,Pain,Poor Balance Comments Gait Comments see mobility comments Stair Climbing Assessment Comments Stair Climbing Comments no stairs at home M5 PT-IP Objective Assessments Start: 06/14/20 11:08 Freq: Status: Discharge Protocol: Document 06/14/20 10:10 MB (Rec: 06/14/20 11:36 MB [id number]) Orientation Orientation/Cognition Level of Alertness Alert Orientation Name,Age,Birthday,Month,Date, Year,Day of Week,Place, Situation Language Function Ability No Deficits Noted Safety Awareness Understands Safety Issues Memory Description No Deficits Noted Gross Range of Motion Upper Extremity ROM Assessment Within Functional Limits Lower Extremity ROM Assessment Bilaterally Impaired Impairments Pt with B guarding of LEs in setting of left LOURDES and right hip pain and needing replacement per pt. Both LEs are edematous, greater on surgical leg. Pt demonstrates 75% normal ROM right HS and less than 50% normal ROM left HS. B ankle ROM is normal with normal DF and great toe extension strength. Strength Upper Extremity Strength Assessment Within Functional Limits Lower Extremity Strength Assessment Bilaterally Impaired Comments Strength Comments MMT deferred in hips and ankles d/t pt guarding and pain. B ankle DF and great toe extension 5/5. Pt presents with weakness in LLE with gait . Sensation Assessment Sensation Gross Sensation WNL Other Assessments Other Other Assessments Orthostatic assessment: BP and HR in RUE: pt hook lyin /64, 64; sitting 126/73, 79; once up on commode: 110/72, 75 . Slow transitional movement and pt reports history of passing out, especially after back surgery M6 PT-IP Treatment Start: 06/14/20 11:08 Freq: Status: Discharge Protocol: Document 06/14/20 14:22 CLB (Rec: 06/14/20 16:34 CLB [id number]) Physical Therapy Treatment Exercises Exercises Ankle Pumps,Gluteal Sets,Quad Sets,Heel Slides Education Education Provided Precautions,Weight Bearing Status,Post-Op Packet,Safety M7 PT-IP Assessment and Plan Start: 06/14/20 11:08 Freq: Status: Discharge Protocol: Document 06/14/20 14:22 CLB (Rec: 06/14/20 16:34 CLB [id number]) PT Summary Assessment and Plan Potential Rehabilitation Potential Good Status of Condition at Evaluation Stable Summary Impairments Pain,ROM,Strength,Balance,Bed Mobility,Transfers,Gait, Activity Tolerance Assessment Summary Pt present during tx for CG training, able to assist pt with SBA of sit<> stand and gait of ~100ft w/FWW , pt able to assist pt with Min A of LLE in and out of bed. Pt with good pain control with increased pain with bed mobilty but otherwise able to mobilize well. Pt seems able to d/c home with husbands assist. Goals Bed Mobility Goal Independent Transfer Goal Independent Gait Goal Independent,Front Wheel Walker Gait Distance 100 Days to Meet Goals 2 Frequency of Treatment Frequency Of Treatment Twice a Day Treatment Plan Physical Therapy Treatment Plan Bed Mobility Training,Transfer Training,Gait Training, Therapeutic Exercise,Balance Retraining,Post Op Education, Discharge Planning,Hot or Cold Pack,Neuromuscular Re-ed, Coordination Retraining,Manual Therapy Recommendations To Nursing Amount of Assist Needed Standby Assistance,1 Person Assist Discharge Recommendations PT Discharge Recommendations Home with 04/01 Assist, Outpatient PT Equipment Needed for Home Before N/a Discharge Transportation Needs at Discharge Private Vehicle
--- NOTE | 2020-06-14 15:06 | CM.DANOTE ---
Discharge Planning/Care Management DCP: assessment: case received, EMR reviewed, dc order noted. PT was to see pt for first time today. Met now with pt and introduced self and role. Pt is a 65 year old female who admitted yesterday for a scheduled L LOURDES. Surgeon: Jeanine Vicente Payer: Medicare and [employer]. Pt did well with PT and says she is eager to leave for home. IMTIAZ Gr aware and plans for all to be completed after 1530. Pt's spouse is in room, pt is dressed and moving independently in room with FWW. OUTPT PT is already set up. H: this afternoon. Advanced directive, confirm from FAMILY Start: 06/13/20 17:15 Freq: Q24H Status: Active Protocol: Document 06/13/20 17:20 KMD (Rec: 06/13/20 17:21 KMD [id number]) Advance Directive, confirm on record Time 17:20 Person contacted Patient Copy received No CM Discharge Assessment Start: 06/14/20 15:05 Freq: Status: Active Protocol: Document 06/14/20 15:05 ITV (Rec: 06/14/20 15:06 ITV [id number]) Discharge Planning Assessment Advance Directives? Yes Advance Directives on File No History Provided By Patient,Medical Record Prior Living Arrangements House Household Members spouse Independent with ADL's Yes Is patient alert and oriented? Yes Patient/Family Preference OP PT Therapy Discharge Plan Home Transportation Arrangement Spouse Pre-Anesthesia Assessment Start: 06/12/20 13:56 Freq: Status: Active Protocol: Document 06/12/20 13:56 CAB (Rec: 06/12/20 14:35 CAB [id number]) Pre-Anesthesia Assessment Patient Information Reviewed Via Phone Assessment Assessment Completed With Patient Diagnostic Results BMP/CMP,CBC,EKG,Urinalysis Comment Labs/EKG done @ [facility], COVID screen @ [facility] 06/12/20-Negative Primary Care Provider [place] Conley Seen Specialist in Last 12 Months Yes Specialist Seen Orthopedist Primary Language Palestinian Preferred Language Palestinian Processing Archivist Required No Height 172.72 cm Weight 63.957 kg Body Mass Index (BMI) 21.4 Hearing Ability Normal Visual Impairment Severely Limited Visual Assist Glasses Dentition Type Teeth, Natural Present Barriers to Learning Visual Hx Anesthesia Reactions No Hx Family Anesthesia Reaction No Hx Malignant Hyperthermia No Hx Blood Transfusions No Anesthesia Review Requested No Tunnel Miner No alcohol intake current alcohol intake frequency a few times a month Smoking Status Former smoker Tobacco type cigarettes how long ago did patient quit smoking 2006 Substance Use Type does not use Pain Present Pain Reported Musculoskeletal Symptoms Abnormal Gait,Back Pain, Difficulty Walking,Joint Swelling,Muscle Cramps,Muscle Spasms,Muscle Weakness, Radiating Pain into Limb History of Falling (Recent or History of No ) Patient is completely paralyzed or No completely immobile Gait/Transferring Weak,Impaired Mental Status Oriented to own ability Comment Difficulty getting out of car, standing, walking Is patient on oxygen? No Does patient have KUO/SOB No Hx Sleep Apnea No Suspected Sleep Apnea No Currently Taking a Beta Nati No Can You Climb a Flight of Stairs Without No: Can't do stairs D/T back SOB pain Hx Chest Pain Yes: Pt felt due to anxiety attack 2018, none since Hx SOB No Hx Syncope or Dizziness No Anti-Coagulant Therapy No Has a Core Man No Cardiac Testing No Hx Pacemaker/ICD No Pacemaker Rep Required? No Cardiac Clearance Received Not Applicable Diet Type At Home Regular dysphagia No Bladder Pattern Nocturia Urinary Catheter Present No Hx Urinary Self Catheterization No Diabetes No Patient No Lactating No Hx Drug Resistant Organism No Presence of External or Internal Medical Yes: Lumbar hardware Devices Have you had any close contact with No someone diagnosed with COVID-19? Marital Status Lives With spouse Prior Living Arrangements House Number of Floors (Floors) One Floor Support System Spouse Does the Patient Have Assistance After Yes Surgery Patient Discharge Plan Description Return Home Comment Pt advised overnight length of stay per surgeon Feels Safe in Current Environment Yes Been Physically Hurt or Threatened By a No Person in Current Environment Do you have thoughts of harming yourself None or others? Are you currently considering suicide? No Do you have a plan to hurt yourself or No Plan others? Do You Have Any Spiritual Beliefs That No May Affect Your HC Choices? Do You Have Any Cultural Practices That No May Affect Your HC Choices? Who Can We Speak to About Patient's Care Family, friends Identifying Code for Release of Patient Declines to issue Information Health Care Proxy/Next of Kin Nahum (spouse) Health Care Proxy or Cell: Emergency Contact Name Nahum (spouse) Emergency Contact or Cell: Advance Directives? Yes Advance Directives on File No Requested Patient Bring Advanced Yes Directives DOS Power of Unloading Checker Yes Power of Unloading Checker Name Nahum Rios Power of Unloading Checker or Cell: PAC Instructions Do not shave/clip surgical site,Durable medical equipment ,Medications to take/avoid, Nasal antibiotic,No ETOH/ petroleum product on skin DOS, NPO,Pre-surgical wash,Sturdy shoes/comfortable clothes,Do not bring valuables and remove jewelry
== END 2020-06-14 15:19 | disposition home or self-care (01) ==
LOC: OR 09:07 → AC 09:09
PROVIDERS: PCP Family Medicine Sports Medicine; Referring Provider Family Medicine Sports Medicine; Visit Provider Orthopaedic Surgery
PROC: (CPT 27130; principal; 2020-06-13 10:45)
DX: M16.12 Unilateral primary osteoarthritis, left hip (principal)
CPT/HCPCS: 27130; 36415; 73502; 73503; 76000; 85014; 85018; 94762; 97110; 97116; 97161; 97535; C1776; C9290; J0690; J1100; J1170; J2250; J2274; J2405; J2704; J3010

== ENCOUNTER → 2020-08-19 07:21 | Outpatient (CLI) | payer MEDICARE, OTHER, SELFPAY ==
[2020-06-13 17:13] VITALS: BMI 21.5
[2020-08-19 08:46] LABS: Add Manual Diff / Slide Review NO; Basophils Absolute Auto 100 /uL (0-100); Basophils Percent Auto 2.4 % (0-2); Eosinophils Absolute Auto 600 /uL (0-450); Eosinophils Percent Auto 13.7 % (2-4); Hematocrit 37.2 % (36-46); Hemoglobin 12.3 g/dL (12.0-16.0); Lymphocytes Absolute Auto 1800 /uL (1100-4500); Lymphocytes Percent Auto 40.2 % (25-40); Mean Corpuscular Hemoglobin 31.9 PG (26-34); Mean Corpuscular Volume 96.9 fL (80-100); Monocytes Absolute Auto 500 /uL (0-900); Neutrophils Absolute Auto 1500 /uL (1500-7000); Neutrophils Percent Auto 33.7 % (50-75); Platelet Count 231 X10^3/uL (150-400); Red Blood Cell Count 3.84 X10^6/uL (4.0-5.2); White Blood Cell Count 4.5 X10^3/uL (4.5-11.0)
[2020-08-19 08:55] LABS: Alanine Aminotransferase 12 IU/L (<35); Albumin 4.4 g/dL (3.5-5.0); Albumin Globulin Ratio 1.5 (1.0-2.8); Alkaline Phosphatase 85 U/L (38-126); Aspartate Aminotransferase 27 IU/L (14-36); BUN Creatinine Ratio 43.9 (6-22); Bilirubin Total 0.3 mg/dL (0.2-1.3); Blood Urea Nitrogen 25 mg/dL (7-17); Calcium 9.3 mg/dL (8.4-10.2); Carbon Dioxide 30 mmol/L (22-32); Chloride 103 mmol/L (98-107); Estimated Glomerular Filt Rate > 60.0 mL/min (>60); Glucose 85 mg/dL (80-110); HEMOLYSIS < 15 (0-50); Potassium 3.9 mmol/L (3.4-5.1); Sodium 138 mmol/L (137-145); Total Protein 7.4 g/dL (6.3-8.2)
== END ==
PROVIDERS: PCP Family Medicine; Referring Provider Orthopaedic Surgery; Visit Provider Family Medicine
DX: Z01.818 Encounter for other preprocedural examination (principal); E05.90 Thyrotoxicosis, unspecified without thyrotoxic crisis or storm; Z01.812 Encounter for preprocedural laboratory examination
CPT/HCPCS: 36415; 80053; 85025; 93005

== ENCOUNTER → 2020-09-11 09:16 | Outpatient (CLI) | payer MEDICARE, OTHER, SELFPAY ==
[2020-06-13 17:13] VITALS: BMI 21.5
[2020-09-11 11:16] LABS: COVID19 -Nasal RAPID Negative (Negative)
== END ==
PROVIDERS: PCP Family Medicine; Visit Provider Student in an Organized Health Care Education/Training Program
DX: Z20.822 Contact with and (suspected) exposure to COVID-19 (principal)
CPT/HCPCS: 87635; C9803

== ENCOUNTER 2020-09-12 09:28 | Day surgery (SDC) | payer MEDICARE, OTHER, SELFPAY ==
[2020-06-13 17:13] VITALS: BMI 21.5
[2020-09-12] VITALS (12 sets, daily range): BP systolic 113–141; BP diastolic 64–78; PULSE 64–101; RESP 12–96; TEMP 36.7–37.1; O2SAT 14–100; BMI 20.9
--- NOTE | 2020-09-12 | DI.RAD.S_ITS ---
PROCEDURE: XR HIP W PEL IF DONE RT 4V INDICATIONS: INNER OPS TECHNIQUE: AP pelvis and lateral view of the right hip acquired. COMPARISON: [facility], CR, XR HIP W PEL IF DONE LT 2V, 06/13/2020, 15:47. [facility], CR, XR PELVIS WITH LATERAL HIP LEFT, 06/27/2020, 14:45. FINDINGS: Fluoroscopic intraoperative images demonstrate placement of right hip arthroplasty with prosthetic components grossly in expected positions. IMPRESSION: Intraoperative imaging during placement of right hip arthroplasty. Dictated by: Qamar Sanchez [facility] Interpreted: Dat Benavidez MD on 09/12/2020 at 17:06 Approved by: Dat Benavidez M.D. on 09/12/2020 at 17:14
--- NOTE | 2020-09-12 06:00 | DI.RAD.S_ITS ---
PROCEDURE: XR HIP W PEL IF DONE RT 2V INDICATIONS: right LOURDES, anterior TECHNIQUE: AP pelvis and lateral view of the right hip [facility]. [facility], 14:58. [facility], DICK, XR HIP W PEL IF DONE LT 2V, 06/13/2020, 15:47. FINDINGS: Bones: Patient is status post right hip arthroplasty, with hardware components in expected positions. The hip joint appears congruent. The visualized bony structures appear intact. Soft tissues: Overlying postoperative changes are noted. No suspicious soft tissue densities. IMPRESSION: Status post right hip replacement. Dictated by: Andres Guerrero M.D. on 09/13/2020 at 8:20 Approved by: Andres Guerrero M.D. on 09/13/2020 at 8:22
[2020-09-12] MEDS: ACETAMINOPHEN 325 MG TABLET 975 MG PO (09:54)
[2020-09-12] MEDS: PREGABALIN 75 MG CAPSULE PO (09:54)
[2020-09-12] MEDS: CELECOXIB 200 MG CAPSULE PO (09:54)
[2020-09-12] MEDS: LACTATED RINGERS 1,000 ML 42 ML IV ×2 (10:27→15:24)
[2020-09-12] MEDS: VANCOMYCIN 1,000 MG/200 ML PIGGYBACK 200 MG IV (10:27)
--- NOTE | 2020-09-12 11:01 | PM.PREOP ---
Pre-operative Note COVID-19 COVID-19 status: Negative Interval Note History & Physical reviewed/Exam performed by Physician: Yes Changes to H&P: No
--- NOTE | 2020-09-12 11:01 | PM.OP.1 ---
Operative Date/Time/Diagnoses Date of procedure: 09/12/20 Time of procedure: 11:58 Pre-op diagnosis: right hip OA Post-op diagnosis: same Procedure & Clinicians Procedure: right total hip arthroplasty anterior approach Same procedure as scheduled: Yes Indications: The patient has had progressively worsening right hip pain with radiographic changes consistent with arthritis. Non-operative management has failed and the patient has requested total hip replacement. The risks, benefits and alternatives to surgery were discussed with the patient prior to proceeding. Risks discussed included, but were not limited to, failure to relieve pain, leg length discrepancy, dislocation, stiffness, infection, nerve damage, deep venous thrombosis, pulmonary embolism, stroke, coma, heart attack, permanent paralysis and , as well as the potential need for eventual revision of the prosthetic. Surgeon: Tonya Vicente Manufacturing Engineering Manager: Matthew Bo Anesthesia Type: General Operative Notes Findings: severe right hip osteoarthritis, good stability Closure Type: primary Specimen(s): none sent Prosthetic devices, grafts, tissues, transplants, or devices: Vicente and nephew size 9 standard offset anthology, 52 mm cup with neutral poly liner, -3 femoral head Oxinium, 2 screws Estimated Blood Loss (mL): 250 Blood products transfused: none Procedure in detail: The patient was brought to the operating room. Patient was carefully positioned in the supine position. Time-out was performed and antibiotics were given. Anesthesia was induced. She was positioned in the on the table in order to allow hyperextension of the hip. The Right lower extremity was prepped and draped in a standard sterile fashion. An anterior right hip incision was made 1 fingerbreadth lateral to the anterior superior iliac spine and extended distally towards the greater trochanter. Dissection was carried out through skin and subcutaneous tissues. Superficial hemostasis was achieved. The fascia over the tensor fascia sarthak was defined and incised with a knife. Two Allis clamps were used to grasp the fascia. Tensor fascia sarthak was retracted laterally. A gelpi retractor was placed. Dissection was carried out down along the neck. The circumflex vessels were carefully identified and cauterized with the Aqua Mantis. There was good visualization of the femoral neck. A Cobra was placed superior to the neck and the gluteus fibers were carefully stripped from that superior aspect of the capsule. A 2nd retractor was placed along the inferior aspect of the neck. The rectus insertion along the capsule was partially released. A 3rd retractor that was then gently placed over the rim of the acetabulum under the rectus. Capsule was carefully incised and released from the intertrochanteric line circumferentially superior to the mid sagittal line and inferiorly to the mid sagittal line until the lesser trochanter was palpable. A tag stitch was placed both in the superior and inferior limb of the capsular insertion. Along the acetabulum capsule was also released up to the mid sagittal 12:00 position. A portion of the labrum was resected. A saw was used to perform an osteotomy at the level of the intertrochanteric line and the junction of the superior femoral neck leaving approximately 1 finger breath of residual inferior neck above the lesser trochanter. A 2nd cut was made along the femoral neck at the base of the head and a napkin ring of neck was removed. Corkscrew was placed in the femoral head and the head was removed without difficulty. Retractors were then repositioned around the acetabulum. Residual labrum was resected and additional osteophytes were removed. A reamer that was 4 mm below the templated size was placed by hand in the acetabulum and it was reamed to centralize the acetabulum. It was then reamed up to 2 under the templated size and fluoroscopy was brought in to confirm the position of the reaming and depth of reaming. I reamed 1 under the anticipated size. A trial cup was placed and noted that it was appropriately sized and fluoroscopy confirmed position and depth. The component was open and inserted without difficulty fluoroscopic imaging was used to confirm that the cup had been adequately seated and was well positioned. it was further stabilized with 2 screws. Neutral poly liner was placed. The cup was tested and noted to be stable. Attention was then directed to the femur. The femur was gently hyperextended additional capsular release was performed as needed in order to allow adequate visualization of the proximal femur with elevation of the femur. Patient was placed in a hyperextended slightly adducted position with maximum external rotation. Box osteotome was used to check for any residual neck as well as sclerotic bone along the trochanter. Altair pepper was placed in the femur. Additional broaching was performed. Canal finder was used to determine the alignment of the canal and position. Size 1 broach was placed. The canal was then appropriately broached up to the templated size as long as there was adequate stability of the broach and serial advancement of the broach without excessive impingement. Specific attention was directed at avoiding varus attempting to direct the distal aspect of the broach more anteriorly and avoiding excessive anteversion. Trial reduction showed acceptable range of motion, good stability, no posterior impingement, mu-ism of leg length and appropriate lateral shuck. I also hyperflexed the hip and checked that there was no impingement anteriorly and there was good stability with flexion, adduction and internal rotation. Marcaine and Exparel were injected.. The stem was placed without difficulty. Repeat trial reduction and x-ray showed acceptable overall position, length, and no evidence of the femoral fracture. Final head was placed. Wound was meticulously irrigated with normal saline. The hip was reduced and additional Exparel and Marcaine were injected. The capsule was closed with interrupted nonabsorbable sutures. The fascia of the tensor was closed with interrupted and running Vicryl. No drain was placed. Any tensor fascia sarthak muscle that appeared to be contused or injured which was a minimal amount was carefully resected. Capsule around the tensor was injected with Exparel and Marcaine. The skin was closed with barbed stitches for the subcutaneous tissue and skin. We also used surgical glue. The wound was dressed sterilely. Brief Betadine soak was also used and was meticulously irrigated with normal saline. Patient was transferred to recovery room in satisfactory condition. Complications: none Post-operative Condition: stable Disposition: Acute Care Plan for aftercare: The patient will be maintained on a standard total hip replacement protocol with weight bearing as tolerated and anterior hip precautions. The patient will receive Aspirin and sequential compression devices for DVT prophylaxis. The patient will be discharged home when safe for the home environment.
[2020-09-12] MEDS: CEFAZOLIN 2 GM/100 ML FROZ.PIGGY IV ×2 (13:56→21:30)
[2020-09-12] MEDS: TRANEXAMIC ACID 1,000 MG VIAL 1000 MG INJ ×2 (14:01→15:56)
--- NOTE | 2020-09-12 14:14 | SUR.OPER ---
Supine on padded [place] table with bilateral legs secured in padded positioning boots and suspended in positioning spars, operative leg in traction per surgeon. Head on one pillow. Arm on non-operative side secured on padded armboard <90 degrees abduction. Arm on operative side padded and resting across chest then secured with tape over sheet. Padded perineal post in place per surgeon.
[2020-09-12] MEDS: BUPIVACAINE LIPOSOME 266 MG/20 ML VIAL INJ ×2 (14:22→14:38)
[2020-09-12] MEDS: SODIUM CHLORIDE IRRIG SOLUTION 250 ML, POVIDONE-IODINE SPONGE STICKS 1 APPLIC IRR (14:38)
[2020-09-12] MEDS: BUPIVACAINE 0.25% W/ EPI (PF) 10 ML VIAL 20 ML INJ (14:39)
[2020-09-12] MEDS: fentaNYL 100 MCG/2 ML INJ IV (16:42)
[2020-09-12] MEDS: HYDROMORPHONE 2 MG INJ IV ×2 (17:03→17:23)
--- NOTE | 2020-09-12 17:21 | SUR.PHASEI ---
Report given to IMTIAZ Huff, for pt going to 204. Pt's affect calm and relaxed. Supplied warm blankets per request. No nausea.
[2020-09-12] MEDS: HYDROCODONE/ACET 5/325 TABLET 1 TAB PO (18:22)
[2020-09-12] MEDS: LACTATED RINGERS 1,000 ML 125 ML IV (18:23)
[2020-09-12] MEDS: ACETAMINOPHEN 325 MG TABLET 650 MG PO (21:11)
[2020-09-12] MEDS: ASPIRIN EC 81 MG TABLET PO (21:11)
[2020-09-12] MEDS: IBUPROFEN 400 MG TABLET PO (21:12)
[2020-09-12] MEDS: DOCUSATE 100 MG CAPSULE PO (21:13)
--- NOTE | 2020-09-12 21:52 | PC.NURSE ---
Report received from PACU. Care assumed 1745. A&Ox3. VSS. Right anterior hip dressing CDI. Ice pack in place. Pain says pain is moderate but tolerable. Encouraged to consider taking meds; pt. agreeable. SCD's on. First time out of bed to BSC with 2-person assist and walker. Pt. transferred very well and is appropriate for one-person assist.
[2020-09-13] MEDS: HYDROCODONE/ACET 5/325 TABLET 1 TAB PO ×3 (00:53→10:38)
[2020-09-13] MEDS: IBUPROFEN 400 MG TABLET PO ×3 (00:53→08:06)
[2020-09-13 00:58] VITALS: BP 105/69; PULSE 93; RESP 16; TEMP 36.5; O2SAT 97
[2020-09-13 05:00] VITALS: BP 115/73; PULSE 74; RESP 16; TEMP 36.4; O2SAT 100
[2020-09-13] MEDS: CEFAZOLIN 2 GM/100 ML FROZ.PIGGY IV (05:01)
[2020-09-13 06:00] LABS: Hematocrit 29.4 % (36-46); Hemoglobin 9.9 g/dL (12.0-16.0)
[2020-09-13] MEDS: LEVOTHYROXINE 88 MCG TABLET PO (06:06)
[2020-09-13 07:50] VITALS: BP 102/66; PULSE 70; RESP 18; TEMP 36.7; O2SAT 97
[2020-09-13] MEDS: FUROSEMIDE 40 MG TABLET PO (08:06)
[2020-09-13] MEDS: DOCUSATE 100 MG CAPSULE PO (08:06)
[2020-09-13] MEDS: ASPIRIN EC 81 MG TABLET PO (08:06)
[2020-09-13] MEDS: ACETAMINOPHEN 325 MG TABLET 650 MG PO (08:15)
[2020-09-13] MEDS: POTASSIUM CHLORIDE 10 MEQ TAB 20 MEQ PO (08:19)
--- NOTE | 2020-09-13 09:09 | PM.DS.1 ---
History of Present Illness History of Present Illness Date Patient Seen: 09/13/20 Time Patient Seen: 09:10 Chief complaint: OPB Narrative: Please refer to HPI previously documented in chart. Discharge Providers Provider Discharge Date: 09/13/20 Primary care physician: Toribio Sosa DO Consults: 09/12/20 06:00 Consult to Anesthesiology Routine Comment: Consulting Provider: Anesthesiologist Reason for consultation: Regional block for post operative pain control Consult to Anesthesiology Routine Comment: Consulting Provider: Anesthesiologist Reason for consultation: Regional block for post operative pain control 09/12/20 17:53 Consult to Discharge Planning Routine Comment: Consult to Physical Therapy Evaluate & Treat Comment: Physician Instructions: post op LOURDES protocol Consult to Respiratory Therapy Evaluate & Treat Comment: Physician Instructions: Evaluate and treat Discharge provider: Matthew Bo PA-C Summary Hospital Course Discharge Diagnosis: Right hip osteoarthritis Right total hip arthroplasty via anterior approach Hospital Course: Female 65 years-old with the above listed diagnoses who was consented for the indicated procedure above and presented to the OR undergoing said procedure without difficulty or complication then admitted for rehabilitation convalescing appropriately without significant issue. The patient was stable for discharge home safely today. They verbalized understanding postoperative care instructions and agreed with plan for follow-up. Status at Discharge Cognitive/behavioral status at discharge: oriented Functional status at discharge: uses cane/walker Overall status at discharge: patient is back to baseline Time Spent with Patient Time spent: Less than 30 minutes Exam Vital Signs (past 8 hours): - 09/13/20 05:00 09/13/20 07:50 Temperature 97.6 F 98.1 F Pulse Rate 74 70 Respiratory Rate 16 18 Blood Pressure 115/73 102/66 Pulse Oximetry 100 97 Oxygen Delivery Method Room Air Oxygen Flow Rate 0 Narrative Exam Narrative: Female 65 years-old observed resting comfortably in no apparent distress and alert and oriented x3. The patient had a regular rate and normal inspiratory effort. The dressing was clean, dry and intact. Their extremity distal to the effected joint was neurovascularly intact without weakness. There are no signs or symptoms of DVT bilaterally. Objective Labs Result Diagrams: 09/13/20 05:40 Labs: Laboratory Results - last 24 hr 09/13/20 05:40 Hgb 9.9 L Hct 29.4 L PFSH Medical History (Updated 09/05/20 @ 22:03 by Toribio T Sosa, DO) Bradycardia Chest pain Hypothyroid Left hip pain Leg swelling Osteoarthritis Other idiopathic scoliosis, thoracolumbar region Postmenopausal Pulmonary HTN RBBB Renal cyst Spinal stenosis, lumbar region with neurogenic claudication Spondylolisthesis, lumbar region Surgical History (Updated 06/12/20 @ 14:02 by Jonna Stevenson RN) History of bilateral tubal ligation History of lithotripsy History of lumbar spinal fusion (05/16/18) History of tonsillectomy S/P epidural steroid injection Social History household members: spouse Smoking Status: Former smoker Tobacco: How many years used: 40 quit status: has quit before second hand exposure: No alcohol intake: current substance use type: does not use Discharge Assessment & Plan Assessment and Plan Assessment: Right hip osteoarthritis Status post total right hip arthroplasty via anterior approach Plan of Treatment: Stable for discharge home today Anterior total hip precautions and care protocols apply Aspirin 81 mg b.i.d. for DVT prophylaxis Follow-up in 2 weeks for re-evaluation or sooner as needed Discharge Plan Discharge Plan Patient Disposition: Home Discharge orders & Medications Discharge Orders: Discharge (Order); Ordered 09/13/20 Ordered By: Matthew Bo Prescriptions: New aspirin 81 mg Tablet,Delayed Release (Dr/Ec) 81 mg PO BID Qty: 90 RF: 0 hydrocodone-acetaminophen 5-325 mg Tablet 1 - 2 tab PO Q4HR PRN (Reason: Pain, Moderate (4-6)) Qty: 60 RF: 0 ibuprofen 400 mg Tablet 400 mg PO Q4HR PRN (Reason: Breakthrough Pain, Moderate) Qty: 60 RF: 0 Continued furosemide 40 mg tablet 40 mg PO DAILY RF: 0 glucosamine HCl 1,500 mg tablet 1,500 mg PO BID RF: 0 levothyroxine 88 mcg tablet 88 mcg PO DAILY RF: 0 magnesium 250 mg tablet 250 mg PO BID RF: 0 multivitamin 1 tab PO DAILY RF: 0 ascorbic acid (vitamin C) 1,000 mg tablet 1 g PO DAILY RF: 0 vitamin B complex Tablet 1 tab PO DAILY RF: 0 vitamin E succinate 200 unit tablet 400 unit PO DAILY RF: 0 apple cider vinegar 600 mg capsule 1,200 mg PO BID RF: 0 cholecalciferol (vitamin D3) 125 mcg (5,000 unit) capsule 125 mcg PO DAILY RF: 0 mecobalamin (vitamin B12) 5,000 mcg tablet,disintegrating 5,000 mcg PO DAILY RF: 0 acetaminophen 500 mg PO DAILY RF: 0 ibuprofen 400 mg PO DAILY RF: 0 potassium chloride [K-Tab] 10 mEq tablet extended release 20 meq PO BID RF: 0 tramadol 50 mg Tablet 50 mg PO BID PRN (Reason: Pain) Qty: 15 RF: 0 hydrocodone-acetaminophen [Elizabeth] 5-325 mg tablet 1 tab PO Q4H PRN (Reason: pain) Qty: 25 RF: 0 Discontinued [id number] 1 tab PO DAILY PRN (Reason: Headache) RF: 0 acetaminophen-codeine 300-60 mg Tablet 1 tab PO Q4-6H PRN (Reason: Pain) RF: 0 Follow up/Referrals: Toribio Sosa, [Primary Care Provider] - Tonya Vicente MD [Physician] - (Follow-up in 2 weeks) Diet/Activity/Treatments Diet: Diet as Tolerated Activity: Weight-bearing as tolerated on right lower extremity with fall precautions and front wheel walker. Anterior hip dislocation precautions as per physical therapy. Cold/Heat Therapy: Ice 20 minutes on per hour as tolerated. Skin/Wound/Dressing Care Report to your healthcare provider any signs of infection, such as:: chills, fever, night sweats, increased pain, unusual drainage and unusual redness Dressing: Keep dressing clean, dry and intact. Call if soiled or saturated. Okay to shower if wrapped in Saran wrap. Do not soak, pool, hot tub etc. Visit Report/Discharge Packet Instructions: DI for Hip Replacement Stand Alone Forms: Surgery Discharge Discharge Data Primary Care Provider: Toribio Sosa Attending Provider: Tonya Vicente
--- NOTE | 2020-09-13 09:30 | PT.IIE ---
Current Diagnoses Unilateral primary osteoarthritis, right hip (09/12/20) Surgery Performed Operation Date: 09/12/20 10:45 Actual Procedures p Total Hip Arthroplasty/Anterior Approach(Right) - Tonya Vicente MD Surgical History (Last Updated 06/12/20 @ 14:02 by Jonna Stevenson, RN) History of bilateral tubal ligation History of lithotripsy History of lumbar spinal fusion (05/16/18) History of tonsillectomy S/P epidural steroid injection Medical History (Last Updated 09/05/20 @ 22:02 by Toribio Sosa DO) Bradycardia Chest pain Hypothyroid Left hip pain Leg swelling Osteoarthritis Other idiopathic scoliosis, thoracolumbar region Postmenopausal Pulmonary HTN RBBB Renal cyst Spinal stenosis, lumbar region with neurogenic claudication Spondylolisthesis, lumbar region Physical Therapy Inpatient Evaluation/Re-Eval M1 PT/OT-IP Prior Functional Status Start: 09/13/20 12:10 Freq: NEEDED Status: Active Protocol: Document 09/13/20 09:30 AB (Rec: 09/13/20 12:22 AB [id number]) Medical Review Prior Functional Status Medical History Reviewed Yes Communication able to make needs known Mobility and Gait pt stated that she is modified independent with mobility but needs assist with LE elevation to bed and spouse has been assisting her; ambulates using a FWW. pt has h/o L LOURDES last 06/13/20 and eversince that time, has been using a FWW for ambulation due to R hip contributing to pain Social History Household Members spouse Living Arrangements House Number of Floors (Floors) One Floor Number of Stairs To Enter/Railing? no steps to enter Home Environment High Toilet,Walk in Shower Home Equipment Front Wheel Walker,Straight Cane,Raised Toilet Seat w/ Armrests,Hand Held Shower,Grab Bars In Shower M2 PT-IP Current Condition Start: 09/13/20 12:10 Freq: NEEDED Status: Active Protocol: Document 09/13/20 09:30 AB (Rec: 09/13/20 12:22 AB [email or web address]) Physical Therapy Current Condition Current Condition Evaluation Date 09/13/20 Treatment Diagnosis s/p R LOURDES anterior approach; difficulty in walking Onset Date 09/12/20 Precautions Anterior Hip Precautions No Hip Extension,No Hip External Rotation Weight Bearing Status Weight Bearing Status Weight Bear as Tolerated Allowed Weight Bearing Amount (enter % RLE WBAT or #) (%) M3 PT-IP Subjective Start: 09/13/20 12:10 Freq: NEEDED Status: Active Protocol: Document 09/13/20 09:30 AB (Rec: 09/13/20 12:22 AB [email or web address]) Subjective Physical Therapy Visit Type Type Initial Evaluation Visit Start Time 09:30 Visit Stop Time 10:16 Total Visit Minutes 46 Number of WAITER/WAITRESS COUNTER Visits 0 Physical Therapy Visit Comments Patient Comments pt is agreeable to do PT; spouse in room with pt Therapy Pain Assessment Pain When Pain Assessed At Rest Pain Present Pain Present Pain Reported Location Right hip Intensity 6 Scale Used Numeric (0 - 10) Pain Management Techniques Distraction,Modification of Treatment,Re-positioning, Timing of Activity with Medications M4 PT-IP Mobility and Gait Start: 09/13/20 12:10 Freq: NEEDED Status: Active Protocol: Document 09/13/20 09:30 AB (Rec: 09/13/20 12:22 [id number]) PT-Bed Mobility Assessment Supine to Sit Supine to Sit Standby Assistance Sit to Supine Sit to Supine Minimal Assistance PT-Transfer Assessment Sit to and From Stand Sit to and from Stand Standby Assistance Equipment Transfer Assistive Device Gait Belt,Front Wheeled Walker Orthotic/Prosthetic Devices or Brace: No Transfers Transfer Destination Bed,Chair,Toilet Transfer Technique ambulated using FWW Transfer Ability Level of Assist Standby Assistance,1 Person Assistance,Use of Upper Extremities Comments Mobility Comments pt just coming out of the toilet with spouse assisting. pt agreed to do PT. educated on hip precautions anterior approach. pt just had surgery last jun 13 but does not remember her precautions. pt completed sit to supine min A and cues for techniques. needed assistance with LE elevation to bed. stated that spouse has been assist her even before surgery. completed supine to sit SBA. ambulated ~ 100 ft using FWW SBA and cues for hip precautions. requested to use the toilet and ambulated to the toilet using FWW SBA. Left pt with spouse. informed nurse regarding pt's mobility and assistance. Gait Assessment Gait Gait Assistance Required: Standby Assistance Distance (Feet) 100 Able to Maintain Weight Bearing Status Yes During Gait Assistive Devices Assistive Device Gait Belt,Front Wheeled Walker Orthotic/Prosthetic Devices or Brace: No Gait Deviations General Gait Pattern Antalgic Factors Limiting Gait Function Factors Limiting Gait Function Decreased Activity Tolerance, Decreased Strength,Pain,Poor Balance,Poor Safety Awareness PT-Balance Assessment Sitting Balance and Reactions Static Sitting Balance Ability Good Dynamic Sitting Balance Ability Good Standing Balance and Reactions Static Standing Balance Ability Fair Dynamic Standing Balance Ability Fair Device Used FWW M5 PT-IP Objective Assessments Start: 09/13/20 12:10 Freq: NEEDED Status: Active Protocol: Document 09/13/20 09:30 AB (Rec: 09/13/20 12:22 AB [email or web address]) Orientation Orientation/Cognition Level of Alertness Alert Orientation Name,Place,Situation Language Function Ability No Deficits Noted Safety Awareness Decreased Safety Awareness Memory Description Short Term Impaired Gross Range of Motion Lower Extremity ROM Assessment Within Functional Limits Strength Lower Extremity Strength Assessment Right Impaired Hip 3-/5 Knee 4-/5 Sensation Assessment Sensation Gross Sensation WNL Other Assessments Other Other Assessments pt with dextro scoliosis; L side pelvic elevation M6 PT-IP Treatment Start: 09/13/20 12:10 Freq: NEEDED Status: Active Protocol: Document 09/13/20 09:30 AB (Rec: 09/13/20 12:22 AB [email or web address]) Physical Therapy Treatment Education Education Provided Precautions,Weight Bearing Status,Post-Op Packet,Safety M7 PT-IP Assessment and Plan Start: 09/13/20 12:10 Freq: NEEDED Status: Active Protocol: Document 09/13/20 09:30 AB (Rec: 09/13/20 12:22 [email or web address] Summary Assessment and Plan Potential Rehabilitation Potential Good Status of Condition at Evaluation Stable Summary Impairments Pain,ROM,Strength,Balance, Coordination,Sensation,Tone, Cognition,Bed Mobility, Transfers,Gait,Activity Tolerance Assessment Summary pt requiring min A with bed mobility but spouse will be able to assist. requires SBA with ambulation using FWW. pt stated that she is set up for outpt PT. pt plans to go home today and spouse to assist. pt may go home when medically stable. Goals Bed Mobility Goal Independent Transfer Goal Independent,Front Wheeled Walker Gait Goal Independent,Front Wheel Walker Gait Distance 150 Days to Meet Goals 3 Frequency of Treatment Frequency Of Treatment Twice a Day Treatment Plan Physical Therapy Treatment Plan Bed Mobility Training,Transfer Training,Gait Training, Therapeutic Exercise,Balance Retraining,Post Op Education, Discharge Planning,Hot or Cold Pack,Neuromuscular Re-ed, Coordination Retraining,Manual Therapy Precautions Anterior Hip Precautions No Hip Extension,No Hip External Rotation Recommendations To Nursing Amount of Assist Needed Standby Assistance Discharge Recommendations PT Discharge Recommendations Home with Assistance, Outpatient PT Transportation Needs at Discharge Private Vehicle
--- NOTE | 2020-09-13 11:01 | PC.NURSE ---
Pt alert& oriented. Discussing pain regarding chronic headache. Meds per orders. Pt to work with PT/OT and then d/c when permitted. [place] per orders. Pt up to BR. Pt and readying for d/c.
--- NOTE | 2020-09-13 11:13 | CM.DANOTE ---
Addendum entered by Kalyani Monge LPN 09/13/20 11:41: Met with pt and her ; introduced self and role. Pt was found up, dressed and standing in room with her FWW. She states she is going this morning as soon as the RN completes her d/c process. PT did clear her for d/c today and pt expresses no concerns re her d/c plan. P: home: orthopedic followup. Original Note: Discharge Planning/Care Management DCP: assessment: case received, EMR reviewed. Discussed in Team Rounds. Pt is to have first session of PT today. Pt is a 65 year old female who admitted yesterday for a scheduled R LOURDES/anterior approach. Payer: Medicare and [employer] Will check in with pt now and follow for d/c needs accordingly. CM Discharge Assessment Start: 09/13/20 11:12 Freq: Status: Active Protocol: Document 09/13/20 11:12 ITV (Rec: 09/13/20 11:13 ITV [id number]) Discharge Planning Assessment Advance Directives? Yes Advance Directives on File No History Provided By Medical Record Prior Living Arrangements House Household Members spouse Discharge Plan Home Transportation Arrangement Spouse
== END 2020-09-13 11:28 | disposition home or self-care (01) ==
LOC: OR 09:31 → AC 12:14
PROVIDERS: PCP Family Medicine; Referring Provider Orthopaedic Surgery; Visit Provider Orthopaedic Surgery
PROC: (CPT 27130; principal; 2020-09-12 10:45)
DX: M16.11 Unilateral primary osteoarthritis, right hip (principal)
CPT/HCPCS: 27130; 36415; 73502; 73503; 76000; 85014; 85018; 97161; 97530; C1776; C9290; J0690; J1100; J1170; J2250; J2405; J2704; J3010